=== PATIENT | female | born 1960 | race Caucasian/White ===

== ENCOUNTER 2025-07-14 16:46 | Inpatient (IN) ==
--- NOTE | 2025-07-14 17:30 | Emergency Department Note ---
Impression & Plan Sepsis, UTI (urinary tract infection), Febrile neutropenia, Nausea, vomiting and diarrhea, Hyponatremia, Hypomagnesemia, Hypokalemia, Hypocalcemia ED Provider Note NAME: SHAYNE BAJWA AGE: 65 SEX: F : 1960 ARRIVES VIA: Walk-In INFORMANT: Patient, ED PROVIDER(S): Corbin rPescott DO CHIEF COMPLAINT: intractable nausea and vomiting HPI: This is a 65-year-old female with the PMHx of metastatic colon cancer on chemotherapy and immunotherapy presenting to [facility] for further evaluation of N/V/D. Patient is accompanied by her family who provide additional history. Patient states that she may have accidently took her medications incorrectly. She was [facility] the [facility], today. Found to have a UTI, electrolyte derangements and dehydration. Sent to the ED for further evaluation. She reports severe N/V/D. She has subjective fevers and chills. No cough or congestion. Denies chest pain or palpitations. No shortness of breath. She does note urinary frequency. She is also reporting diarrhea. Patient denies recent changes in medications or OTC supplements. Patient offers no other complaints, today. ADDITIONAL HISTORY OBTAINED: Per HPI Chronic Medical/Social Conditions Affecting Care: Per HPI PAST MEDICAL HISTORY: See Below PAST SURGICAL HISTORY: See Below FAMILY HISTORY: See Below SOCIAL HISTORY: See Below HOME MEDICATIONS: See Below ALLERGIES: See Below VITALS: See Below PHYSICAL EXAMINATION: GENERAL: Sitting up in bed, alert, well appearing, well nourished, no distress, non-toxic EYE EXAM: normal conjunctiva. PERRL and EOM's grossly intact. OROPHARYNX: no exudate, no erythema, lips, buccal mucosa, and tongue normal and mucous membranes are dry NECK: supple, no nuchal rigidity, no adenopathy, non-tender LUNGS: Clear to auscultation. Normal chest wall mechanics HEART: no murmurs, tachycardic rate, regular rhythm ABDOMEN: abdomen soft, generalized TTP, no masses, no rebound or guarding. BACK: Back is symmetrical on inspection and there is no deformity, no midline tenderness, no CVA tenderness. SKIN: no rashes and no bruising UPPER EXTREMITIES: upper extremities are grossly normal. LOWER EXTREMITIES: No pitting edema. NEURO EXAM: Normal sensorium, GCS 15, normal speech, no gross weakness of arms, no gross weakness of legs. MEDICAL DECISION MAKING: Differential diagnoses includes but not limited to appendicitis, bowel obstruction, diverticulitis, malignancy, nephrolithiasis, gastroenteritis, ACS, PNA, pancreatitis, hepatobiliary disease, UTI, electrolyte derangements, dehydration, medication side effect In summary, this is a 65 year old female who presented with N/V/D. Differential as above. Nursing notes and pertinent past medical records reviewed. Vital signs reviewed and the patient is tachycardic but otherwise afebrile and HDS. History and presentation revealed patient was at the cancer center today for severe nausea and vomiting as well as abdominal pain. Found to have multiple electrolyte derangements and sent here for further care. She does have a complicated UTI. Patient states this has been ongoing. She is on oral chemo therapy as well as immunotherapy. Could be a side effect but do believe the patient is likely septic from a complicated UTI. She is peritonitic on exam, plan for CT abdomen/pelvis. Will complete sepsis evaluation with further lab work and blood cultures. Patient did receive IV fluids as well as potassium replenishment at the [facility]. Plan to recheck BMP prior to further replenishment. Will provide IV fluid resuscitation as well as broad-spectrum antibiotics with IV cefepime. BioFire ordered. Diagnostics interpreted by me include EKG and cardiac monitoring as listed below: -Cardiac Monitoring: An order was placed for continuous cardiac monitoring. The monitor shows a rate of 70-120s with regular rhythm. -ECG: Sinus tachycardia at a rate of [address] segment changes to suggest STEMI. Intervals are otherwise within normal limits. Patient completed laboratory studies and imaging. Results independently interpreted by me are ongoing dehydration, hypokalemia, hypomagnesemia, and hypocalcemia. Neutropenia noted. UTI on UA from [facility]. RVP negative but pending stool studies. The patient was managed with IVFR and broad spectrum abx. She has given pain control medications and GI cocktail with improvement. Her electrolytes were replenished in the ED. CXR independently interpreted by me reveals no evidence of focal consolidation to suggest pna. No large pneumothorax or pleural effusion. CTAP shows evidence of enteritis/colitis per my interpretation. Ultimately, the decision was made to admit the patient for sepsis c/b febrile neutropenia, dehydration, electrolyte derangements. I discussed the case with the hospitalist service via telephone/TigerText and they are agreeable to admit the patient to their services by Dr. Tafoya. Based on the above, including the patient's age, coexisting illnesses, labs, imaging, and exam findings the decision to treat as an inpatient. I discussed the patient with the hospitalist team who recommended admission to their services. They received the medications, treatments, interventions indicated above and their condition remained stable. I discussed my findings with the patient and their family and they understand and agree with the treatment plan. All patient / family questions were answered to their satisfaction. Consults/Care Managements Discussions: Per MDM ER treatment provided: See above Procedures:none Critical Care: None The chart was completed utilizing [employer] Speech voice recognition software. Grammatical errors, random word insertions, pronoun errors, and incomplete sentences are an occasional consequence of this system due to software limitations, ambient noise, and hardware issues. Any formal questions or concerns about the content, text, or information contained within the body of this dictation should be directly addressed to the physician for clarification. Past Med/Surg History Problem List (Updated 07/17/25 @ 12:22 by Corbin Prescott DO) Febrile neutropenia (Acute) Sepsis (Acute) C. difficile colitis Neutropenic fever Elevated troponin Hypocalcemia (Acute) Hypokalemia (Acute) Hypomagnesemia (Acute) Hyponatremia (Acute) Nausea, vomiting and diarrhea (Acute) Neutropenia UTI (urinary tract infection) (Acute) Social History Smoking Status: Current every day smoker Tobacco Type: Cigarettes Second Hand Exposure: No; Do You Dip or Chew Tobacco: No; Tobacco Cessation Education Requested by Patient: No Hx Alcohol Use: No Hx Substance Use: No Communication Ability: Effective Beliefs That Will Affect Care: None Current Living Situation: Spouse Other Information That Helps Us Care for You: No Feels Safe at Home: Yes Safety Concerns: Feels Safe At This Time Assistive Devices: Cane Assistive Devices Comment: shower chair Allergies Allergies Allergy/AdvReac Type Severity Reaction Status Date / Time NSAIDS (Non-Steroidal AdvReac Severe "RIPS UP Verified 07/14/25 19:32 Anti-Inflamma MY STOMACH AND GUTS" prednisone AdvReac Intermediate PER PT Verified 07/14/25 19:32 "EFFECTING THE RETINAS IN MY EYES, PER MD" Home Meds Home Medications Medication Instructions Recorded Confirmed loperamide 2 mg capsule 2 mg PO QID PRN LOOSE STOOLS 07/14/25 07/14/25 ondansetron 8 mg disintegrating 8 mg translingual Q8H PRN 07/14/25 07/14/25 tablet NAUSEA/VOMITING oxycodone 5 mg tablet 5 mg PO .Q4-6HR PRN Pain 07/14/25 07/14/25 prochlorperazine maleate 10 mg 10 mg PO Q6H PRN NAUSEA/VOMITING 07/14/25 07/14/25 tablet trifluridine 20 mg-tipiracil 8.19 3 tab PO BID 07/14/25 07/14/25 mg tablet (Lonsurf) Results & Data (ED) Vital Signs Vital Signs - 24 hr 07/14/25 16:53 07/14/25 17:34 Temperature 37.2 C Temperature Source Temporal Artery Scan Pulse Rate 123 H 113 H Respiratory Rate 22 Respiratory Effort / Characteristics Non-Labored Respiratory Depth Normal Respiratory Pattern Regular Blood Pressure 131/78 Blood Pressure Mean 95 Pulse Oximetry 98 Oxygen Delivery Method Room Air Sepsis Recent Fever Within 48 Hours No Sepsis New/Unexplained Change in Mental Status No Sepsis Action Taken by Nursing No Action Required Laboratory Data 07/17/25 06:24 07/17/25 06:24 Lab Results 07/14/25 07/14/25 Range/Units 18:01 18:05 POC Hgb 10.2 L (12.0-16.0) g/dl POC Hct 30 L (37-47) % POC Sodium 130 L (135-144) mmol/L Sodium 130 L (136-145) mmol/L POC Potassium 2.9 L (3.3-5.0) mmol/L Potassium 2.9 L (3.5-5.1) mmol/L POC Chloride 97 L (101-112) mmol/L Chloride 97 L (98-107) mmol/L Carbon Dioxide 23 (21-32) mmol/L POC Total CO2 21 L (24-31) mmol/L Anion Gap 10 (3-11) POC Anion Gap 16.0 (16-25) mmol/L POC BUN 12 (7-18) mg/dl BUN 14 (6-23) mg/dl Creatinine 0.48 L (0.6-1.2) mg/dl POC Creatinine 0.5 L (0.6-1.3) mg/dl Est Cr Clr Drug Dosing 90.3 ml/min eGFR 103.75 BUN/Creatinine Ratio 29.2 H (10-20) Glucose 128 H (70-99(Fasting)) mg/dl POC Glucose (other) 131 H (70-99) mg/dl Lactate 1.1 (0.4-2.0) mmol/L Calcium 8.2 L (8.6-10.3) mg/dl POC Ioniz Calcium Fabio 1.04 L (1.12-1.32) mmol/l Magnesium 1.6 L (1.7-2.4) mg/dl Troponin I High Sens 16.7 H (0-14) pg/ml Procalcitonin 0.88 H (0-0.5) ng/ml Administered Medications Acetaminophen (Acetaminophen 325 Mg Tab) 650 mg PO Q4H PRN PRN Reason: Pain or Fever Stop: 08/13/25 21:51 Last Admin: 07/17/25 03:03 Dose: 650 mg Documented By: Admin: 07/16/25 02:26 Dose: 650 mg Documented By: Admin: 07/15/25 19:46 Dose: 650 mg Documented By: Admin: 07/15/25 10:10 Dose: 650 mg Documented By: cdc Admin: 07/15/25 05:31 Dose: 650 mg Documented By: DARRYL Fidaxomicin (Fidaxomicin 200 Mg Tab) 200 mg PO BID ESTELLE Stop: 07/25/25 08:59 Last Admin: 07/17/25 09:35 Dose: 200 mg Documented By: Admin: 07/16/25 19:59 Dose: 200 mg Documented By: Admin: 07/16/25 08:51 Dose: 200 mg Documented By: Admin: 07/15/25 19:38 Dose: 200 mg Documented By: Admin: 07/15/25 10:10 Dose: 200 mg Documented By: cdc Cefepime HCl (Maxipime 2000mg) 2,000 mg in 20 mls @ 5 mls/min IV Q8H ESTELLE; Protocol Stop: 07/20/25 02:59 Last Admin: 07/17/25 02:52 Dose: 5 mls/min Documented By: Admin: 07/16/25 19:59 Dose: 5 mls/min Documented By: Admin: 10/03/25 11:50 Dose: 5 mls/min Documented By: Admin: 07/16/25 02:26 Dose: 5 mls/min Documented By: Admin: 07/15/25 19:38 Dose: 5 mls/min Documented By: Admin: 07/15/25 12:25 Dose: 5 mls/min Documented By: cdc Admin: 07/15/25 03:14 Dose: 5 mls/min Documented By: DARRYL Sodium Chloride (Nss) 1,000 mls @ 80 mls/hr IV .[id number] ESTELLE Stop: 07/19/25 09:59 Last Infusion: 07/17/25 11:08 Dose: Infused Documented By: Admin: 07/16/25 22:38 Dose: 80 mls/hr Documented By: Infusion: 07/16/25 21:13 Dose: Infused Documented By: Admin: 07/16/25 09:00 Dose: 80 mls/hr Documented By: SOL Ondansetron HCl (Ondansetron Inj 2 Mg/Ml 2 Ml Vial) 4 mg IV Q6H PRN PRN Reason: Nausea Stop: 08/13/25 21:51 Last Admin: 07/16/25 02:26 Dose: 4 mg Documented By: Admin: 07/14/25 22:24 Dose: 4 mg Documented By: DARRYL Oxycodone HCl (Oxycodone Hcl Ir 5 Mg Tab (Immediate Release)) 5 mg PO Q4H PRN PRN Reason: Pain Stop: 07/29/25 09:20 Last Admin: 07/17/25 03:02 Dose: 5 mg Documented By: Admin: 07/16/25 19:59 Dose: 5 mg Documented By: Admin: 07/16/25 13:33 Dose: 5 mg Documented By: Admin: 07/16/25 08:52 Dose: 5 mg Documented By: Admin: 07/15/25 18:50 Dose: 5 mg Documented By: cdc Admin: 07/15/25 10:10 Dose: 5 mg Documented By: cdc Discontinued Medications Al Hydrox/Mg Hydrox/Simethicone (Aluminum/Magnesium/Simeth (Maalox Max) 30 Ml Udc) 30 ml PO NOW STA Stop: 07/14/25 18:35 Last Admin: 07/14/25 18:48 Dose: 30 ml Documented By: ASW Hydromorphone HCl (Hydromorphone Inj 1 Mg/Ml Syringe) 1 mg IV NOW STA Stop: 07/14/25 17:31 Last Admin: 07/14/25 17:41 Dose: 1 mg Documented By: ASW Hydromorphone HCl (Hydromorphone Inj 0.5 Mg/0.5 Ml Syr) 0.5 mg IV ONE ONE Stop: 07/17/25 05:06 Last Admin: 07/17/25 05:05 Dose: 0.5 mg Documented By: ZIGGY Sodium Chloride (Nss) 1,000 mls @ 999 mls/hr IV .Q1H1M ESTELLE Stop: 07/14/25 18:30 Last Infusion: 07/14/25 18:25 Dose: Infused Documented By: Admin: 07/14/25 17:41 Dose: 999 mls/hr Documented By: ARIELW Cefepime HCl (Maxipime 2000mg) 2,000 mg in 20 mls @ 5 mls/min IV NOW STA; Protocol Stop: 07/14/25 17:33 Last Admin: 07/14/25 18:48 Dose: 5 mls/min Documented By: ARIELW Potassium Chloride (K Salo / Wtr) 10 meq in 100 mls @ 100 mls/hr IV Q1H ESTELLE Stop: 07/14/25 21:29 Last Infusion: 07/14/25 22:38 Dose: Infused Documented By: Admin: 07/14/25 21:23 Dose: 100 mls/hr Documented By: Infusion: 07/14/25 21:17 Dose: Infused Documented By: Admin: 07/14/25 20:22 Dose: 100 mls/hr Documented By: Infusion: 07/14/25 19:48 Dose: Infused Documented By: Admin: 07/14/25 18:48 Dose: 100 mls/hr Documented By: ASW Famotidine (Pepcid 20mg Iv Push) 20 mg in 5 mls @ 2.5 mls/min IV NOW STA Stop: 07/14/25 18:35 Last Admin: 07/14/25 18:48 Dose: 2.5 mls/min Documented By: ASW Magnesium Sulfate/Dextrose (Magnesium Sulfate / D5w) 1 gm in 100 mls @ 100 mls/hr IV Q1H ESTELLE Stop: 07/14/25 20:51 Last Infusion: 07/14/25 22:19 Dose: Infused Documented By: Admin: 07/14/25 20:44 Dose: 100 mls/hr Documented By: Infusion: 07/14/25 20:44 Dose: Infused Documented By: Admin: 07/14/25 19:54 Dose: 100 mls/hr Documented By: ASW Calcium Gluconate () 1,000 mg in 60 mls @ 240 mls/hr IV NOW STA Stop: 07/14/25 19:06 Last Infusion: 07/14/25 19:16 Dose: Infused Documented By: Admin: 07/14/25 19:01 Dose: 240 mls/hr Documented By: ASGlenis Acetaminophen (Ofirmev) 1,000 mg in 100 mls @ 400 mls/hr IV NOW STA Stop: 07/14/25 20:36 Last Infusion: 07/14/25 21:08 Dose: Infused Documented By: Admin: 07/14/25 20:44 Dose: 400 mls/hr Documented By: ASW Lactated Ringer's (Lr) 1,000 mls @ 80 mls/hr IV .[id number] ESTELLE Stop: 07/15/25 22:59 Last Infusion: 07/16/25 00:34 Dose: Infused Documented By: Admin: 07/15/25 11:29 Dose: 80 mls/hr Documented By: [facility] Infusion: 07/15/25 11:28 Dose: Infused Documented By: [facility] Admin: 07/14/25 22:25 Dose: 80 mls/hr Documented By: DARRYL Prochlorperazine 10 mg/ (Syringe) 10 mls @ 5 mls/min IV ONE ONE Stop: 07/16/25 03:18 Last Admin: 07/16/25 03:40 Dose: 5 mls/min Documented By: ANDI Potassium Chloride (K Salo / Wtr) 10 meq in 100 mls @ 100 mls/hr IV Q1H ESTELLE Stop: 07/16/25 11:59 Last Infusion: 07/16/25 13:18 Dose: Infused Documented By: Admin: 07/16/25 11:49 Dose: 100 mls/hr Documented By: Infusion: 07/16/25 11:49 Dose: Infused Documented By: Admin: 07/16/25 10:51 Dose: 100 mls/hr Documented By: Infusion: 07/16/25 10:43 Dose: Infused Documented By: Admin: 07/16/25 09:43 Dose: 100 mls/hr Documented By: Infusion: 07/16/25 09:43 Dose: Infused Documented By: Admin: 07/16/25 08:50 Dose: 100 mls/hr Documented By: SOL Potassium Chloride (K Salo / Wtr) 10 meq in 100 mls @ 100 mls/hr IV Q1H ESTELLE Stop: 07/17/25 11:59 Last Infusion: 07/17/25 11:30 Dose: Infused Documented By: Admin: 07/17/25 10:30 Dose: 100 mls/hr Documented By: Infusion: 07/17/25 10:30 Dose: Infused Documented By: Admin: 07/17/25 09:30 Dose: 100 mls/hr Documented By: KEVIN Influenza Virus Vacc Triv Types A&B (Influenza Vacc [id number](65y+)/Pf (Iiv3) 0.5ml Syr) 0.5 ml IM .ONCE ONE Stop: 07/15/25 10:46 Last Admin: 07/15/25 18:45 Dose: Not Given Documented By: [facility] Ioversol (Optiray 320 100ml) 90 ml IV ONCE ONE Stop: 07/14/25 18:40 Last Admin: 07/14/25 18:39 Dose: 90 ml Documented By: ADY Morphine Sulfate (Morphine Sulfate 2 Mg/Ml Carp) 1 mg IV NOW STA Stop: 07/15/25 06:04 Last Admin: 07/15/25 06:14 Dose: 1 mg Documented By: DARRYL Potassium Chloride (Potassium Chloride Crtab 20 Meq Tabcr) 40 meq PO NOW STA Stop: 07/15/25 02:29 Last Admin: 07/15/25 03:13 Dose: 40 meq Documented By: DARRYL Discharge Plan Visit Data Chief Complaint: Referred by Doctor Stated Complaint: PAIN NAUSEA CANCER PATIENT DOC REFERRAL ED Provider: Corbin Prescott Discharge Problem: Sepsis, UTI (urinary tract infection), Febrile neutropenia, Nausea, vomiting and diarrhea, Hyponatremia, Hypomagnesemia, Hypokalemia, Hypocalcemia Patient Disposition: Admitted As Inpatient Condition: Serious Discharge Instructions Interventions: ED Discharge Assessment Last Done: 07/14/25 21:33
[2025-07-14] MEDS: SODIUM CHLORIDE 0.9% 1,000 ML IV SCH (17:41)
[2025-07-14] MEDS: HYDROmorphone INJ 1 MG/ML SYRINGE IV STA (17:41)
--- NOTE | 2025-07-14 18:26 | XRay Report ---
Chest radiograph, one view History: Sepsis Comparison: None Findings: Single AP view of the chest performed. No focal consolidation or pleural effusion. No pneumothorax. The cardiomediastinal silhouette is within normal limits. Normal pulmonary vascularity. No evidence for lymphadenopathy. No visualized bony or soft tissue abnormality. Impression: Normal chest radiograph Electronically signed by Etienne Fitzgerald 07-14-2025 6:26 PM
[2025-07-14] MEDS: OPTIRAY 320 100ml IV ONE (18:39)
[2025-07-14 18:40] LABS: Anion Gap 10.0 (3-11); Blood Urea Nitrogen 14.0 mg/dl (6-23); Calcium 8.2 mg/dl (8.6-10.3); Carbon Dioxide 23.0 mmol/L (21-32); Chloride 97.0 mmol/L (98-107); Creatinine Clr Calc Pharmacy 90.3 ml/min; Glucose 128.0 mg/dl (70-99(Fasting)); Magnesium 1.6 mg/dl (1.7-2.4); Potassium 2.9 mmol/L (3.5-5.1); Sodium 130.0 mmol/L (136-145)
[2025-07-14] MEDS: CEFEPIME 2000MG 2,000 MG/20 ML SYR IV STA (18:48)
[2025-07-14] MEDS: FAMOTIDINE 20MG IV PUSH 20 MG/5 ML SYR IV STA (18:48)
[2025-07-14] MEDS: ALUMINUM/MAGNESIUM/SIMETH (MAALOX MAX) 30 ML UDC PO STA (18:48)
[2025-07-14] MEDS: POTASSIUM CHLORIDE / WTR 10 MEQ/100 ML PLCT IV SCH (18:48)
[2025-07-14 18:52] LABS: Chlamydia pneumoniae PCR Not Detected (NotDetected); Coronavirus 229E PCR Not Detected (NotDetected); Coronavirus CoV-2 (COVID19)PCR Not Detected (NotDetected); Coronavirus HKU1 PCR Not Detected (NotDetected); Coronavirus NL63 PCR Not Detected (NotDetected); Coronavirus OC43PCR Not Detected (NotDetected); Human Metapneumovirus PCR Not Detected (NotDetected); Parainfluenza Virus 1 PCR Not Detected (NotDetected); Parainfluenza Virus 2 PCR Not Detected (NotDetected); Parainfluenza Virus 3 PCR Not Detected (NotDetected); Parainfluenza Virus 4 PCR Not Detected (NotDetected); Respiratory Syncytial VirusPCR Not Detected (NotDetected); Rhinovirus/Enterovirus PCR Not Detected (NotDetected)
[2025-07-14] MEDS: CALCIUM GLUCONATE 1,000 MG/60 ML BAG IV STA (19:01)
--- NOTE | 2025-07-14 19:16 | CT Scan Report ---
Clinical History: Abdominal pain Technique: Axial computed tomography images were obtained of the abdomen and pelvis after the administration of intravenous contrast. Comparison is made to the prior CT dated 04/08/2025. Findings: The liver is overall of normal size, attenuation, and contour with no sign of cirrhosis or significant fatty infiltration. There is an unchanged 4 mm cyst in the left hepatic lobe. No liver mass lesion is seen. The portal vein is patent. The gallbladder appears unremarkable. No bile duct dilatation is noted. The spleen is of normal size. No focal splenic lesion is evident. The pancreas appears normal with no sign of acute or chronic pancreatitis and no mass lesion noted. The pancreatic duct is of normal caliber. The adrenal glands appear unremarkable. No definite renal or proximal ureteral calculi are seen on this contrast-enhanced study. There is no hydronephrosis or perinephric stranding. No renal mass lesion is identified. There is a small 8 x 3 mm cyst in the mid left kidney. The aorta is of normal caliber. No abdominal adenopathy is seen. There is a small epigastric hernia containing fat The stomach appears normal. There is no sign of small bowel obstruction. There is new wall thickening of the distal jejunum and ileum with adjacent mild mesenteric edema. No free intraperitoneal fluid or air is identified. Anastomotic sutures are again seen of the sigmoid colon. There is a 4.1 x 3.2 cm low attenuation lesion abutting the mid sigmoid colon, previously 3.3 x 2.7 cm. Posterosuperior to this, there is a 3.7 x 2.9 cm low attenuation lesion, previously 3.5 x 2.5 centimeters. Superior to this, there is a 2.6 x 2.3 cm lesion that previously measured 2 x 1.9 cm. No distal ureteral or bladder calculi are seen. No bladder mass lesion is evident. The iliac arteries are of normal caliber. The uterus has been removed The lungs bases appear clear. Lumbar degenerative disc disease is seen. No fracture is identified. No focal osseous lesion is seen Impression: 1. New small bowel wall thickening, consistent with infectious enteritis or inflammatory bowel disease 2. Interval increase in size of 3 low-attenuation lesions in the left pelvis, concerning for worsening metastatic disease 3. Small epigastric hernia containing only fat 4. Small left renal cyst ACT 112: Positive. There are findings on this exam that require communication between the performing entity and the patient following Patient Test Result Information Act ([place] ACT 112) guidelines. Electronically signed by Romel Alonso 07-14-2025 7:16 PM
[2025-07-14] MEDS: MAGNESIUM SULFATE / D5W 1 GM/100 ML BAG IV SCH (19:54)
--- NOTE | 2025-07-14 19:55 | History & Physical Report ---
Date of Service July 14, 2025 Assessment & Plan (1) UTI (urinary tract infection): (2) Neutropenia: (3) Nausea, vomiting and diarrhea: (4) Hyponatremia: (5) Hypomagnesemia: (6) Hypokalemia: (7) Hypocalcemia: (8) Elevated troponin: Plan 65-year-old female PMHx stage IV colon cancer on immunotherapy presenting from [facility] for N/V/D as well as electrolyte abnormalities as identified on outpatient labs. Her evaluation does reveal that she is leukopenic and neutropenic at 0.32 and <0.5 respectively. Electrolyte abnormalities include decreased sodium, potassium, calcium and magnesium. Slightly elevated bilirubin with decreased AST, elevated alkaline phosphatase. Procalcitonin minimally elevated with normal lactate and presence of UTI. CTAP revealing findings consistent with infectious enteritis or IBS. Admission for neutropenia in setting of UTI, enteritis, and electrolyte abnormalities. #UTI/? Sepsis/Neutropenia Symptoms of N/V/D, weakness ~ 1 week [employer]; No history of Pseudomonas, but with leukopenia/neutropenia. Arrival to ED revealed HR 120s and in setting of leukopenia. Lactate WNL. UTI suspected main source vs enteritis. Admit for management. - CBC WBC 0.32, neutrophils < 0.5; CMP Cr 0.48, BUN/Cr 29.2; lactate 1.1, procal 0.88 - CBC am - UA suggestive of infection; pending cx - Blood cx pending - BioFire negative - CXR WNL - CTAP infectious enteritis or IBS, small epigastric hernia containing fat, smal l L renal cyst - Neutropenic precautions - IVF LR @ 80 mL/hr - Zofran prn N/V - Cefepime IV - continue #N/V/D Ongoing, likely 2/2 incorrect schedule of administration of Lonsurf. On loperamide at home for loose stool. - Hold loperamide - CTAP sections enteritis or IBS, increased size 3 low-attenuation lesions in the pelvis concerning for worsening metastatic disease, small epigastric hernia containing only fat, small L renal cyst - Stool studies pending - Zofran IV prn, prochlorperazine po - Acetaminophen prn fever/pain - Maalox prn - IVF as ordered - Ice to abdomen as pt requests #Hypokalemia/Hypomagnesemia/Hyponatremia/Hypocalcemia In setting of vomiting and diarrhea over the past week, worsening 3 days [employer]. Has been unable to tolerate anything by mouth. - Na 130, glucose 128; Receive total 2L (between [facility] + ED) - maintenance LR @ 80 mL/hr - K 2.9; KCl 30 mEq IV given - Mg 1.6; mag sulfate 2g IV given - Ca 8.2; Calcium gluconate 1g IV given - Trend labs am #Elevated troponin No chest pain - Troponin 16.7, pending repeat - EKG sinus tachycardia @ 117 bpm, no ischemic changes - Likely 2/2 demand #Colon CA Follows with [facility], was taking Lonsurf but admits to administering incorrectly and taking incorrect doses. - Hold Lonsurf - CBC WBC 0.32, neutrophils < 0.5 - Consult heme/onc as appropriate Dispo: Admit, med/tele VTE Prophylaxis: SCDs This document was dictated utilizing [employer]. Please excuse any grammatical errors that may be secondary to use of this software. Admission and Anticipated Discharge Date Admission Date: 07/14/2025 History of Present Illness Chief Complaint: N/V/D, electrolyte abnormalities Primary Care Provider: Surinder Babcock MD 65-year-old female PMHx stage IV colon cancer on immunotherapy presenting from [facility] for N/V/D as well as electrolyte abnormalities as identified on outpatient labs. Patient states that approximately 1 week [employer] she started to have nausea, vomiting, and diarrhea. 3 days [employer] this worsened and she has been unable to keep any oral intake down since. She does admit to being on Lonsurf and was not taking this medication correctly, stating that she misunderstood the instructions and believes that this is the reason that she has felt sick. She states she has loose stool approximately 2+ times a day, excessive gas, and vomits multiple times of the day, mainly clear liquid. She does continue to have dry heaves but no nausea. States that her abdomen is not painful but she feels rumbling so she is to have a bowel movement. She denies fevers or chills. She has had a generalized headache across her forehead but no vision changes or neuro-deficits. No dysuria or foul odor to urine, but states that she is having lower abdomen pressure and feeling like she has to urinate all the time. She was seen by the cancer care center the day of arrival who encouraged her to come to ED after the labs showed that she was leukopenic and neutropenic, with presence of UTI. Patient denies chest pain, SOB, palpitations, constipation, numbness/tingling, fever/chills, URI symptoms, additional LUTS, syncope, or falls. ED evaluation reveals CBC with leukopenia 0.32, H&H 13.6/39.0, platelets 106, neutrophils <0.5; CMP sodium 130, potassium 2.9, chloride 97, creatinine 0.48, ratio 29.2, glucose 128; calcium 8.2; magnesium 1.6; lactate 1.1; bilirubin 1.6, AST 9, alkaline phosphatase 114; troponin 16.7; procalcitonin 0.88; UA positive for infection; BioFire negative; CXR WNL; CTAP new small bowel wall thickening consistent with infectious enteritis or IBS, interval increase in size 3 low-attenuation lesion of L pelvis concerning for worsening metastatic disease, small gastric hernia containing only fat, small L renal cyst; EKG sinus tachycardia @ 117 bpm.; Provided with 1L NSS, KCl 10 mEq IV, mag sulfate 2 g IV, hydromorphone 1 mg IV, famotidine 20 mg IV, cefepime 2 g IV, calcium gluconate 1 mg IV, and Maalox 30 mL p.o. in ED. Please see Dr. Tafoya's attestation for adjustments/additions to treatment plan. Allergies Allergy/AdvReac Type Severity Reaction Status Date / Time NSAIDS (Non-Steroidal AdvReac Severe "RIPS UP Verified 07/14/25 19:32 Anti-Inflamma MY STOMACH AND GUTS" prednisone AdvReac Intermediate PER PT Verified 07/14/25 19:32 "EFFECTING THE RETINAS IN MY EYES, PER MD" Home Medications Medication Instructions Recorded Confirmed Type loperamide 2 mg capsule 2 mg PO QID PRN LOOSE STOOLS 07/14/25 07/14/25 History ondansetron 8 mg disintegrating 8 mg translingual Q8H PRN 07/14/25 07/14/25 History tablet NAUSEA/VOMITING oxycodone 5 mg tablet 5 mg PO .Q4-6HR PRN Pain 07/14/25 07/14/25 History prochlorperazine maleate 10 mg 10 mg PO Q6H PRN NAUSEA/VOMITING 07/14/25 07/14/25 History tablet trifluridine 20 mg-tipiracil 8.19 3 tab PO BID 07/14/25 07/14/25 History mg tablet (Lonsurf) Past Med/Surg History Problem List (Updated 07/14/25 @ 22:04 by Hue Hartman PA-C) Elevated troponin Hypocalcemia Hypokalemia Hypomagnesemia Hyponatremia Nausea, vomiting and diarrhea Neutropenia UTI (urinary tract infection) Social History Smoking Status: Current every day smoker Tobacco Type: Cigarettes Second Hand Exposure: No; Do You Dip or Chew Tobacco: No; Tobacco Cessation Education Requested by Patient: No Hx Alcohol Use: No Hx Substance Use: No Communication Ability: Effective Beliefs That Will Affect Care: None Current Living Situation: Spouse Other Information That Helps Us Care for You: No Feels Safe at Home: Yes Safety Concerns: Feels Safe At This Time Assistive Devices: Cane, Glasses and Other Assistive Devices Comment: shower chair Review of Systems Review of Systems: All systems reviewed & are unremarkable except as noted in Subjective Physical Exam Physical Exam: General: No acute distress Skin: Warm and dry Head: Normocephalic, atraumatic Eyes: PERRL, conjunctivae clear, sclera non-icteric ENT: External ear and ear canal without swelling; nose atraumatic; good dentition, tongue normal appearance, pharynx normal Neck: Supple, no LAD Cardio: RRR, no M/G/R, S1 and S2 normal Resp: No respiratory distress, Lungs CTA in all lobes bilaterally, no wheezes, rales, or rhonchi Abdomen: Soft, symmetric, mild tenderness to palpation lower abdomen; No masses or hepatosplenomegaly; Bowel sounds normoactive MSK: No deformities; pulses palpable and equal; no edema. Neuro: Awake, alert; Sensation intact bilaterally; CN grossly intact Psych: Appropriate mood and affect; good judgement and insight. Results & Data Results & Data Vital Signs (Past 12 Hours) Vital Signs Temp Pulse Pulse Resp BP BP Pulse Ox 07/14/25 18:49 81 22 132/65 96 07/14/25 18:14 85 19 149/87 H 97 07/14/25 17:34 113 H 07/14/25 16:53 37.2 C 123 H 22 131/78 98 O2 Del Method 07/14/25 18:49 Room Air 07/14/25 18:14 Room Air 07/14/25 17:34 07/14/25 16:53 Room Air Laboratory Results 07/14/25 18:24 Aerobic Blood Culture - Pending Blood Anaerobic Blood Culture - Pending 07/14/25 18:01 Aerobic Blood Culture - Pending Blood Anaerobic Blood Culture - Pending 07/14/25 07/14/25 07/14/25 Unknown 18:05 18:01 POC Hgb 10.2 L POC Hct 30 L POC Sodium 130 L Sodium 130 L POC Potassium 2.9 L Potassium 2.9 L POC Chloride 97 L Chloride 97 L Carbon Dioxide 23 POC Total CO2 21 L Anion Gap 10 POC Anion Gap 16.0 POC BUN 12 BUN 14 Creatinine 0.48 L POC Creatinine 0.5 L Est Cr Clr Drug Dosing 90.3 eGFR 103.75 BUN/Creatinine Ratio 29.2 H Glucose 128 H POC Glucose (other) 131 H Lactate 1.1 Calcium 8.2 L POC Ioniz Calcium Fabio 1.04 L Magnesium 1.6 L Troponin I High Sens 16.7 H Procalcitonin 0.88 H Adenovirus (PCR) Not Detected B. pertussis DNA (PCR) Not Detected B.parapertussis DNA PCR Not Detected C. pneumoniae DNA (PCR) Not Detected Coronavirus OC43 (PCR) Not Detected Coronavirus HKU1 (PCR) Not Detected Coronavirus 229E (PCR) Not Detected SARS-CoV-2 (PCR) Not Detected Coronavirus NL63 (PCR) Not Detected Human Metapneumovir PCR Not Detected Influenza Type A (PCR) Not Detected Influenza Type B (PCR) Not Detected M. pneumoniae (PCR) Not Detected Parainfluenza 1 (PCR) Not Detected Parainfluenza 2 (PCR) Not Detected Parainfluenza 3 (PCR) Not Detected Parainfluenza 4 (PCR) Not Detected RSV (PCR) Not Detected Entero/Rhino (PCR) Not Detected Diagnostic Findings Abdomen/Pelvis CT 07/14/25 17:30 Clinical History: Abdominal pain Technique: Axial computed tomography images were obtained of the abdomen and pelvis after the administration of intravenous contrast. Comparison is made to the prior CT dated 04/08/2025. Findings: The liver is overall of normal size, attenuation, and contour with no sign of cirrhosis or significant fatty infiltration. There is an unchanged 4 mm cyst in the left hepatic lobe. No liver mass lesion is seen. The portal vein is patent. The gallbladder appears unremarkable. No bile duct dilatation is noted. The spleen is of normal size. No focal splenic lesion is evident. The pancreas appears normal with no sign of acute or chronic pancreatitis and no mass lesion noted. The pancreatic duct is of normal caliber. The adrenal glands appear unremarkable. No definite renal or proximal ureteral calculi are seen on this contrast-enhanced study. There is no hydronephrosis or perinephric stranding. No renal mass lesion is identified. There is a small 8 x 3 mm cyst in the mid left kidney. The aorta is of normal caliber. No abdominal adenopathy is seen. There is a small epigastric hernia containing fat The stomach appears normal. There is no sign of small bowel obstruction. There is new wall thickening of the distal jejunum and ileum with adjacent mild mesenteric edema. No free intraperitoneal fluid or air is identified. Anastomotic sutures are again seen of the sigmoid colon. There is a 4.1 x 3.2 cm low attenuation lesion abutting the mid sigmoid colon, previously 3.3 x 2.7 cm. Posterosuperior to this, there is a 3.7 x 2.9 cm low attenuation lesion, previously 3.5 x 2.5 centimeters. Superior to this, there is a 2.6 x 2.3 cm lesion that previously measured 2 x 1.9 cm. No distal ureteral or bladder calculi are seen. No bladder mass lesion is evident. The iliac arteries are of normal caliber. The uterus has been removed The lungs bases appear clear. Lumbar degenerative disc disease is seen. No fracture is identified. No focal osseous lesion is seen Impression: 1. New small bowel wall thickening, consistent with infectious enteritis or inflammatory bowel disease 2. Interval increase in size of 3 low-attenuation lesions in the left pelvis, concerning for worsening metastatic disease 3. Small epigastric hernia containing only fat 4. Small left renal cyst ACT 112: Positive. There are findings on this exam that require communication between the performing entity and the patient following Patient Test Result Information Act ([place] ACT 112) guidelines. Electronically signed by Romle Alonso 07-14-2025 7:16 PM Chest X-Ray 07/14/25 17:30 Chest radiograph, one view History: Sepsis Comparison: None Findings: Single AP view of the chest performed. No focal consolidation or pleural effusion. No pneumothorax. The cardiomediastinal silhouette is within normal limits. Normal pulmonary vascularity. No evidence for lymphadenopathy. No visualized bony or soft tissue abnormality. Impression: Normal chest radiograph Electronically signed by Etienne Fitzgerald 07-14-2025 6:26 PM Medications Administered 1L NSS KCl 10 mEq IV Mag sulfate 2 g IV Hydromorphone 1 mg IV Famotidine 20 mg IV Cefepime 2 g IV Calcium gluconate 1 mg IV Maalox 30 mL p.o. ECG Additional Comments: Sinus tachycardia 117 bpm, [place] 138, QRS 76, QT/QTc 332/463, PRT -14/-11/-20 Code Status & VTE Plan Code Status Full Supervising Physician Co-Signing Physician Notes Patient seen examined, chart reviewed, case discussed with RASHI Hartman and agree with assessment and plan as above. In brief, patient is a 65-year-old female with stage IV colon cancer on immunotherapy presenting with nausea, vomiting and diarrhea. Workup thus far revealing neutropenia, UTI, enteritis and electrolyte abnormalities On exam patient is afebrile, hemodynamically stable, no acute distress + S1, S2, regular, no murmur/rub/gallops Lungs CTA Abdomen soft, non-nondistended, mild tenderness in the lower abdomen without rebound/guarding/peritonitis assessment/plan IV fluids Electrolyte repletion Maintain neutropenic precautions Continue cefepime PG Care Time/CCT Total # of Minutes Spent Total Time Spent with Patient: Total time spent is greater than 50% in coordination of care (as documented) at patient's floor/unit and/or counseling patient: Coding Level of Care Code 83033 INT INP/OBS CARE 3/75MIN Diagnoses UTI (urinary tract infection) N39.0 Neutropenia D70.9 Nausea, vomiting and diarrhea R11.2; R19.7 Hyponatremia E87.1 Hypomagnesemia E83.42 Hypokalemia E87.6 Hypocalcemia E83.51 Elevated troponin R79.89
[2025-07-14] MEDS: ACETAMINOPHEN 1,000 MG/100 ML VIAL IV STA (20:44)
[2025-07-14] MEDS ORDERED: PROCHLORPERAZINE MALEATE 10 MG TAB PO PRN (21:52)
[2025-07-14] MEDS ORDERED: ALUMINUM/MAGNESIUM SUSP 30 ML UDC PO PRN (21:52)
[2025-07-14] MEDS ORDERED: MELATONIN 3 MG TAB PO PRN (21:52)
[2025-07-14] MEDS ORDERED: ONDANSETRON 4 MG OD TAB SL PRN (21:54)
[2025-07-14 22:16] LABS: Adenovirus F 40/41 PCR Not Detected (NotDetected); Campylobacter PCR Not Detected (NotDetected); Enteroaggregative E.coli(EAEC) Not Detected (NotDetected); Shiga-like Toxin E.coli (STEC) Not Detected (NotDetected); Vibrio species PCR Not Detected (NotDetected)
[2025-07-14] MEDS: ONDANSETRON INJ 2 MG/ML 2 ML VIAL IV PRN (22:24)
[2025-07-14] MEDS: LACTATED RINGER'S 1,000 ML IV SCH (22:25)
[2025-07-14 22:43] LABS: Cdiff Toxin B Gene (2yr or >) Positive Cdiff Gene (Neg)
[2025-07-14 23:39] LABS: Cdiff Toxin A+B Negative Cdiff Toxin (Negative)
[2025-07-15] MEDS: POTASSIUM CHLORIDE CRTAB 20 MEQ TABCR PO STA (03:13)
[2025-07-15] MEDS: CEFEPIME 2000MG 2,000 MG/20 ML SYR IV SCH (03:14)
[2025-07-15] MEDS: ACETAMINOPHEN 325 MG TAB PO PRN (05:31)
[2025-07-15] MEDS: MoRPHine SULFATE 2 MG/ML CARP IV STA (06:14)
[2025-07-15 08:13] LABS: Anion Gap 9.0 (3-11); Blood Urea Nitrogen 9.0 mg/dl (6-23); Calcium 8.2 mg/dl (8.6-10.3); Carbon Dioxide 23.0 mmol/L (21-32); Chloride 97.0 mmol/L (98-107); Creatinine Clr Calc Pharmacy 114.9 ml/min; Glucose 126.0 mg/dl (70-99(Fasting)); Magnesium 1.9 mg/dl (1.7-2.4); Potassium 2.9 mmol/L (3.5-5.1); Sodium 129.0 mmol/L (136-145)
[2025-07-15 08:16] LABS: Hematocrit (blood only) 27.7 % (37.0-47.0); Hemoglobin 10.0 g/dl (12.0-16.0); Mean Corpuscular Hemoglobin 29.3 pg (25.0-34.0); Mean Corpuscular Volume 81.2 fL (80.0-100.0); Platelet Count 53 K/uL (130-400); RDW Standard Deviation 38.4 fL (36.4-46.3); Red Blood Count 3.41 M/uL (4.20-5.40); White Blood Count 0.17 K/ul (4.8-10.8)
--- NOTE | 2025-07-15 08:41 | Electrocardiogram Report ---
Test Reason : Blood Pressure : */* mmHG Vent. Rate : 117 BPM Atrial Rate : 117 BPM P-R Int : 138 ms QRS Dur : 76 ms QT Int : 332 ms P-R-T Axes : -14 -11 -20 degrees QTcB Int : 463 ms Sinus tachycardia Nonspecific ST abnormality Abnormal ECG When compared with ECG of 26-Jan-2025 12:43, Nonspecific T wave abnormality now evident in Inferior leads Nonspecific T wave abnormality now evident in Anterior leads Confirmed by Etienne Pollard ([id number]) on 07/15/2025 8:41:32 AM Referred By: Mahesh Rowe Confirmed By: Etienne Pollard
--- NOTE | 2025-07-15 09:28 | Hospitalist Progress Note ---
Date of Service July 15, 2025 Assessment & Plan (1) UTI (urinary tract infection): Plan: -on cefepime (2) Neutropenia: Plan: -colon CA -on lonsurf -WBC 0.17 today -heme-onc consulted (3) Nausea, vomiting and diarrhea: Plan: -c.diff B + with symptoms -started Fidaxomicin -ID consulted (4) Hyponatremia: Plan: -on LR@80cc/hr -f/u BMP (5) Hypomagnesemia: Plan: -repleated (6) Hypokalemia: Plan: -repleated (7) Hypocalcemia: Plan: -calcium gluconate give (8) Elevated troponin: Plan: EKG sinus tachycardia @ 117 bpm, no ischemic changes - Likely 2/2 demand Plan 65-year-old female PMHx stage IV colon cancer on immunotherapy presenting from [facility] for N/V/D as well as electrolyte abnormalities as identified on outpatient labs. Her evaluation does reveal that she is leukopenic and neutropenic at 0.32 and <0.5 respectively. Electrolyte abnormalities include decreased sodium, potassium, calcium and magnesium. Slightly elevated bilirubin with decreased AST, elevated alkaline phosphatase. Procalcitonin minimally elevated with normal lactate and presence of UTI. CTAP revealing findings consistent with infectious enteritis or IBS. Admission for neutropenia in setting of UTI, enteritis, and electrolyte abnormalities. Admission and Anticipated Discharge Date Admission Date: July 14, 2025 Subjective No events overnight. Review of Systems Review of Systems: CONST: Negative for fever, body aches and chills. HENT: Negative for neck pain/stiffness, headache, congestion, sore throat, swelling. EYES: Negative for discharge/pain or vision changes. RESP: Negative for cough/hemoptysis and shortness of breath. CV: Negative chest pain, difficulty breathing, palpitations. ABD: Negative pain, nausea, vomiting. : Negative increase frequency, dysuria, blood in urine or stool. MUSC: Negative for muscle aches, edema. SKIN: Negative rash, lesions/sores. NEURO: Negative headache, dizziness, weakness. Physical Exam Physical Exam: GENERAL APPEARANCE NAD, activity normal for age, well developed/ well nourished, no cyanosis, pallor, or diaphoresis. EYES lids/conjunctiva normal. EARS/NOSE/THROAT Mucous membranes moist, nares normal, lips/teeth normal uvula midline without oral pharyngeal erythema, exudate or swelling TMs normal bilaterally. No lymphangitis/lymphedema. HEAD/NECK normocephalic atraumatic, no facial trauma, neck is supple. RESPIRATORY respiratory effort normal, speaks in full sentences, no tripod position, no accessory muscle use. Lungs clear to auscultation without rhonchi, wheezes, rales CARDIAC Regular rate and rhythm, no edema. ABDOMINAL Soft, ND/NT. No evidence of fluid wave. No pulsatile masses on exam, rebound tenderness, York sign or pain over Mcburney's point. MUSCLES/EXTREMITIES No abnormal range of motion, no swelling. SKIN Warm, pink and dry. No rashes, dermatoses, petechiae or lesions. NEUROLOGICAL Speech is clear and appropriate. Normal level of consciousness. Gait and coordination are normal. 5/5 strength in all extremities. PSYCH Normal mood and affect. Judgement/competence is appropriate Results & Data Results & Data Vital Signs (Past 12 Hours) Vital Signs Temp Pulse Pulse Resp BP Pulse Ox O2 Del Method 07/15/25 07:30 37.6 C H 76 18 117/58 L 96 Room Air 07/15/25 03:01 38.2 C H 108 H 16 124/73 98 Room Air 07/14/25 22:00 75 07/14/25 22:00 37.3 C 75 20 123/73 95 Room Air 07/14/25 21:23 79 19 127/71 97 Room Air PG Care Time/CCT Total # of Minutes Spent Total Time Spent with Patient: Total time spent is greater than 50% in coordination of care (as documented) at patient's floor/unit and/or counseling patient: Coding Level of Care Code 36896 SUB INP/OBS CARE 2/35MIN Diagnoses UTI (urinary tract infection) N39.0 Neutropenia D70.9 Nausea, vomiting and diarrhea R11.2; R19.7 Hyponatremia E87.1 Hypomagnesemia E83.42 Hypokalemia E87.6 Hypocalcemia E83.51 Elevated troponin R79.89
--- NOTE | 2025-07-15 10:07 | Infectious Disease Consult ---
Date of Consultation July 15, 2025 Assessment & Plan (1) Neutropenic fever: (2) C. difficile colitis: Plan Problems: #Neutropenic fever #Diarrhea #N/V #Colon cancer on Lonsurf Micro: 07/14 BCx x2: pending 07/14 UCx: pending Abx: Cefepime 07/14 - present Fidaxomicin 07/15 - present 65 yo F with stage IV colon cancer on immunotherapy who presented from [facility] on 07/14/25 for N/V/D, outpatient lab abnormalities, found to have neutropenic fever and likely C diff. 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 Reports >5 episodes of watery diarrhea a day. Denies fevers or chills. Denies dysuria or urinating more frequently than usual. She reports that in the last few weeks, her oncologist prescribed her an antibiotic for UTI (she does not recall the name of the antibiotic). On presentation, pt was afebrile, HR 123, BP 131/78. Became febrile to 38.2 overnight. Labs showed WBC 0.32, ANC < 500, Hb 13.6, plt 106, Cr 0.75. UA with 6-[address] A/P with IV contrast showed new small bowel wall thickening, consistent with infectious enteritis or inflammatory bowel disease. Pt was started on cefepime. Stool pathogen panel came back C diff toxin gene positive, toxin negative. BCx and UCx pending. Pt denies recent travel or sick contacts. Endorses some rhinorrhea, shortness of breath. Also reports feeling dizzy and weak. Denies a history of prior C diff. Discussion: C diff toxin gene positive, toxin negative--could indicate colonization, but in the setting of recent antibiotic exposure and frequent diarrhea, will treat as C diff. Not ideal to continue systemic antibiotics while treating for C diff, but will continue given neutropenic fever. Recommendations: - Continue fidaxomicin 200 mg PO BID - Continue cefepime given neutropenic fever - Follow-up blood and urine cultures Will continue to follow Consultation Information Consultation was provided via telemedicine using two-way real-time interactive telecommunication between the patient and the telemedicine provider. For the duration of the visit, the provider was performing the assessment from a different facility than the patient. This includesuse of bluetooth stethoscope forauscultationperformed by the telepresenter that the telemedicine provider can hear if described in the physical exam. Spinneret Cleaner contact information: Please call [facility] . (Phone Number For Physician Use Only) After establishing a telemedicine visit, patient was: Patient was verified with two unique identifiers, Patient/authorized rep acknowledged consent and understanding and Gave permission to continue telehealth session Time Spent with Patient: Initial => 55 min History of Present Illness Reason for Consultation: C diff, neutropenia Attending Physician: Hadley Zhao MD History of Present Illness 65 yo F with stage IV colon cancer on immunotherapy who presented from [facility] on 07/14/25 for N/V/D, outpatient lab abnormalities. 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 Reports >5 episodes of watery diarrhea a day. Denies fevers or chills. Denies dysuria or urinating more frequently than usual. She reports that in the last few weeks, her oncologist prescribed her an antibiotic for UTI (she does not recall the name of the antibiotic). On presentation, pt was afebrile, HR 123, BP 131/78. Became febrile to 38.2 overnight. Labs showed WBC 0.32, ANC < 500, Hb 13.6, plt 106, Cr 0.75. UA with 6-[address] A/P with IV contrast showed new small bowel wall thickening, consistent with infectious enteritis or inflammatory bowel disease. Pt was started on cefepime. Stool pathogen panel came back C diff toxin gene positive, toxin negative. BCx and UCx pending. Pt denies recent travel or sick contacts. Endorses some rhinorrhea, shortness of breath. Also reports feeling dizzy and weak. Denies a history of prior C diff. Allergies Allergy/AdvReac Type Severity Reaction Status Date / Time NSAIDS (Non-Steroidal AdvReac Severe "RIPS UP Verified 07/14/25 19:32 Anti-Inflamma MY STOMACH AND GUTS" prednisone AdvReac Intermediate PER PT Verified 07/14/25 19:32 "EFFECTING THE RETINAS IN MY EYES, PER MD" Home Medications Medication Instructions Recorded Confirmed Type loperamide 2 mg capsule 2 mg PO QID PRN LOOSE STOOLS 07/14/25 07/14/25 History ondansetron 8 mg disintegrating 8 mg translingual Q8H PRN 07/14/25 07/14/25 History tablet NAUSEA/VOMITING oxycodone 5 mg tablet 5 mg PO .Q4-6HR PRN Pain 07/14/25 07/14/25 History prochlorperazine maleate 10 mg 10 mg PO Q6H PRN NAUSEA/VOMITING 07/14/25 07/14/25 History tablet trifluridine 20 mg-tipiracil 8.19 3 tab PO BID 07/14/25 07/14/25 History mg tablet (Lonsurf) Patient History Social History Smoking Status: Current every day smoker Tobacco Type: Cigarettes Second Hand Exposure: No; Do You Dip or Chew Tobacco: No; Tobacco Cessation Education Requested by Patient: No Hx Alcohol Use: No Hx Substance Use: No Communication Ability: Effective Beliefs That Will Affect Care: None Current Living Situation: Spouse Other Information That Helps Us Care for You: No Feels Safe at Home: Yes Safety Concerns: Feels Safe At This Time Assistive Devices: Cane, Glasses and Other Assistive Devices Comment: shower chair Review of System A complete ROS was performed and is negative except as mentioned in the HPI. Physical Exam Physical Exam: GEN: uncomfortable appearing, sitting up at side of bed bending over table in discomfort RESP: No increased work of breathing NEURO: Alert and oriented. Answers all questions appropriately. Speech not slurred. PSYCH: Normal mood, affect appropriate. Results & Data Vital Signs (Past 12 Hours) Vital Signs Temp Pulse Resp BP Pulse Ox O2 Del Method 07/15/25 07:30 37.6 C H 76 18 117/58 L 96 Room Air 07/15/25 03:01 38.2 C H 108 H 16 124/73 98 Room Air Laboratory Results Short CBC 07/15/25 Range/Units 07:37 WBC 0.17 L* (4.8-10.8) K/ul Hgb 10.0 L D (12.0-16.0) g/dl Hct 27.7 L (37.0-47.0) % Plt Count 53 L (130-400) K/uL BMP 07/14/25 07/15/25 18:01 07:28 Sodium 130 L 129 L Potassium 2.9 L 2.9 L Chloride 97 L 97 L Carbon Dioxide 23 23 BUN 14 9 Creatinine 0.48 L 0.41 L Glucose 128 H 126 H Calcium 8.2 L 8.2 L Diagnostic Findings Abdomen/Pelvis CT 07/14/25 17:30 Clinical History: Abdominal pain Technique: Axial computed tomography images were obtained of the abdomen and pelvis after the administration of intravenous contrast. Comparison is made to the prior CT dated 04/08/2025. Findings: The liver is overall of normal size, attenuation, and contour with no sign of cirrhosis or significant fatty infiltration. There is an unchanged 4 mm cyst in the left hepatic lobe. No liver mass lesion is seen. The portal vein is patent. The gallbladder appears unremarkable. No bile duct dilatation is noted. The spleen is of normal size. No focal splenic lesion is evident. The pancreas appears normal with no sign of acute or chronic pancreatitis and no mass lesion noted. The pancreatic duct is of normal caliber. The adrenal glands appear unremarkable. No definite renal or proximal ureteral calculi are seen on this contrast-enhanced study. There is no hydronephrosis or perinephric stranding. No renal mass lesion is identified. There is a small 8 x 3 mm cyst in the mid left kidney. The aorta is of normal caliber. No abdominal adenopathy is seen. There is a small epigastric hernia containing fat The stomach appears normal. There is no sign of small bowel obstruction. There is new wall thickening of the distal jejunum and ileum with adjacent mild mesenteric edema. No free intraperitoneal fluid or air is identified. Anastomotic sutures are again seen of the sigmoid colon. There is a 4.1 x 3.2 cm low attenuation lesion abutting the mid sigmoid colon, previously 3.3 x 2.7 cm. Posterosuperior to this, there is a 3.7 x 2.9 cm low attenuation lesion, previously 3.5 x 2.5 centimeters. Superior to this, there is a 2.6 x 2.3 cm lesion that previously measured 2 x 1.9 cm. No distal ureteral or bladder calculi are seen. No bladder mass lesion is evident. The iliac arteries are of normal caliber. The uterus has been removed The lungs bases appear clear. Lumbar degenerative disc disease is seen. No fracture is identified. No focal osseous lesion is seen Impression: 1. New small bowel wall thickening, consistent with infectious enteritis or inflammatory bowel disease 2. Interval increase in size of 3 low-attenuation lesions in the left pelvis, concerning for worsening metastatic disease 3. Small epigastric hernia containing only fat 4. Small left renal cyst ACT 112: Positive. There are findings on this exam that require communication between the performing entity and the patient following Patient Test Result Information Act ([place] ACT 112) guidelines. Electronically signed by Romel Alonso 07-14-2025 7:16 PM Chest X-Ray 07/14/25 17:30 Chest radiograph, one view History: Sepsis Comparison: None Findings: Single AP view of the chest performed. No focal consolidation or pleural effusion. No pneumothorax. The cardiomediastinal silhouette is within normal limits. Normal pulmonary vascularity. No evidence for lymphadenopathy. No visualized bony or soft tissue abnormality. Impression: Normal chest radiograph Electronically signed by Etienne Fitzgerald 07-14-2025 6:26 PM Medications Administered Current Inpatient Medications Acetaminophen (Acetaminophen 325 Mg Tab) 650 mg PO Q4H PRN PRN Reason: Pain or Fever Stop: 08/13/25 21:51 Last Admin: 07/15/25 05:31 Dose: 650 mg Al Hydrox/Mg Hydrox/Simethicone (Aluminum/Magnesium Susp 30 Ml Udc) 15 ml PO Q 4H PRN PRN Reason: Dyspepsia Stop: 08/13/25 21:51 Fidaxomicin (Fidaxomicin 200 Mg Tab) 200 mg PO BID [facility] Stop: 07/25/25 08:59 Cefepime HCl (Maxipime 2000mg) 2,000 mg in 20 mls @ 5 mls/min IV Q8H [facility]; Protocol Stop: 07/20/25 02:59 Last Admin: 07/15/25 03:14 Dose: 5 mls/min Lactated Ringer's (Lr) 1,000 mls @ 80 mls/hr IV .[id number] [facility] Stop: 07/15/25 22:59 Last Admin: 07/14/25 22:25 Dose: 80 mls/hr Melatonin (Melatonin 3 Mg Tab) 3 mg PO HS PRN PRN Reason: Sleep Stop: 08/13/25 21:51 Ondansetron HCl (Ondansetron 4 Mg Od Tab) 4 mg SL Q8H PRN PRN Reason: NAUSEA/VOMITING Stop: 08/13/25 21:53 Ondansetron HCl (Ondansetron Inj 2 Mg/Ml 2 Ml Vial) 4 mg IV Q6H PRN PRN Reason: Nausea Stop: 08/13/25 21:51 Last Admin: 07/14/25 22:24 Dose: 4 mg Oxycodone HCl (Oxycodone Hcl Ir 5 Mg Tab (Immediate Release)) 5 mg PO Q4H PRN PRN Reason: Pain Stop: 07/29/25 09:20 Prochlorperazine (Prochlorperazine Maleate 10 Mg Tab) 10 mg PO Q6H PRN PRN Reason: NAUSEA/VOMITING Stop: 08/13/25 21:51
[2025-07-15] MEDS: FIDAXOMICIN 200 MG TAB PO SCH (10:10)
[2025-07-15] MEDS: INFLUENZA VACC TS2025-26(65y+)/PF (IIV3) 0.5mL Syr IM ONE (18:45)
[2025-07-16] MEDS: PROCHLORPERAZINE 10 MG in SYRINGE 8 ML IV ONE (03:40)
[2025-07-16 07:32] LABS: Hematocrit (blood only) 27.9 % (37.0-47.0); Hemoglobin 10.0 g/dl (12.0-16.0); Mean Corpuscular Hemoglobin 29.1 pg (25.0-34.0); Mean Corpuscular Volume 81.1 fL (80.0-100.0); Platelet Count 42 K/uL (130-400); RDW Standard Deviation 37.9 fL (36.4-46.3); Red Blood Count 3.44 M/uL (4.20-5.40); White Blood Count 0.16 K/ul (4.8-10.8)
[2025-07-16 07:51] LABS: Anion Gap 11.0 (3-11); Blood Urea Nitrogen 8.0 mg/dl (6-23); Calcium 8.2 mg/dl (8.6-10.3); Carbon Dioxide 24.0 mmol/L (21-32); Chloride 93.0 mmol/L (98-107); Creatinine Clr Calc Pharmacy 143.6 ml/min; Glucose 102.0 mg/dl (70-99(Fasting)); Potassium 2.3 mmol/L (3.5-5.1); Sodium 128.0 mmol/L (136-145)
[2025-07-16] MEDS: POTASSIUM CHLORIDE / WTR 10 MEQ/100 ML PLCT IV SCH (08:50)
[2025-07-16] MEDS: SODIUM CHLORIDE 0.9% 1,000 ML IV SCH (09:00)
--- NOTE | 2025-07-16 09:59 | Hospitalist Progress Note ---
Date of Service July 16, 2025 Assessment & Plan (1) UTI (urinary tract infection): Plan: -on cefepime -urine culture negative so far (2) Neutropenia: Plan: -colon CA -on lonsurf -WBC 0.17 today -heme-onc consulted (3) Nausea, vomiting and diarrhea: Plan: -c.diff B + with symptoms -Fidaxomicin IV Q12 -ID consult appreciated (4) Hyponatremia: Plan: -on NS IVF -f/u BMP (5) Hypomagnesemia: Plan: -repleated (6) Hypokalemia: Plan: -repleated (7) Hypocalcemia: Plan: -calcium gluconate give (8) Elevated troponin: Plan: EKG sinus tachycardia @ 117 bpm, no ischemic changes - Likely 2/2 demand Plan 65-year-old female PMHx stage IV colon cancer on immunotherapy presenting from [facility] for N/V/D as well as electrolyte abnormalities as identified on outpatient labs. Her evaluation does reveal that she is leukopenic and neutropenic at 0.32 and <0.5 respectively. Electrolyte abnormalities include decreased sodium, potassium, calcium and magnesium. Slightly elevated bilirubin with decreased AST, elevated alkaline phosphatase. Procalcitonin minimally elevated with normal lactate and presence of UTI. CTAP revealing findings consistent with infectious enteritis or IBS. Admission for neutropenia in setting of UTI, enteritis, and electrolyte abnormalities. Admission and Anticipated Discharge Date Admission Date: July 14, 2025 Subjective No events overnight. Pt still having diarrhea and abdominal pain. Review of Systems Review of Systems: CONST: Negative for fever, body aches and chills. HENT: Negative for neck pain/stiffness, headache, congestion, sore throat, swelling. EYES: Negative for discharge/pain or vision changes. RESP: Negative for cough/hemoptysis and shortness of breath. CV: Negative chest pain, difficulty breathing, palpitations. ABD: Negative pain, nausea, vomiting. : Negative increase frequency, dysuria, blood in urine or stool. MUSC: Negative for muscle aches, edema. SKIN: Negative rash, lesions/sores. NEURO: Negative headache, dizziness, weakness. Physical Exam Physical Exam: GENERAL APPEARANCE NAD, activity normal for age, well developed/ well nourished, no cyanosis, pallor, or diaphoresis. EYES lids/conjunctiva normal. EARS/NOSE/THROAT Mucous membranes moist, nares normal, lips/teeth normal uvula midline without oral pharyngeal erythema, exudate or swelling TMs normal bilaterally. No lymphangitis/lymphedema. HEAD/NECK normocephalic atraumatic, no facial trauma, neck is supple. RESPIRATORY respiratory effort normal, speaks in full sentences, no tripod position, no accessory muscle use. Lungs clear to auscultation without rhonchi, wheezes, rales CARDIAC Regular rate and rhythm, no edema. ABDOMINAL Soft, ND/NT. No evidence of fluid wave. No pulsatile masses on exam, rebound tenderness, York sign or pain over Mcburney's point. MUSCLES/EXTREMITIES No abnormal range of motion, no swelling. SKIN Warm, pink and dry. No rashes, dermatoses, petechiae or lesions. NEUROLOGICAL Speech is clear and appropriate. Normal level of consciousness. Gait and coordination are normal. 5/5 strength in all extremities. PSYCH Normal mood and affect. Judgement/competence is appropriate Results & Data Results & Data Vital Signs (Past 12 Hours) Vital Signs Temp Pulse Pulse Resp BP Pulse Ox O2 Del Method 07/16/25 08:33 37.1 C 73 17 116/70 96 Room Air 07/16/25 05:27 37.5 C 07/16/25 02:23 37.8 C H 102 H 18 124/72 96 Room Air 07/15/25 23:11 37.2 C 75 16 120/68 95 Room Air 07/15/25 22:11 73 PG Care Time/CCT Total # of Minutes Spent Total Time Spent with Patient: Total time spent is greater than 50% in coordination of care (as documented) at patient's floor/unit and/or counseling patient: Coding Level of Care Code 18826 SUB INP/OBS CARE 2/35MIN Diagnoses UTI (urinary tract infection) N39.0 Neutropenia D70.9 Nausea, vomiting and diarrhea R11.2; R19.7 Hyponatremia E87.1 Hypomagnesemia E83.42 Hypokalemia E87.6 Hypocalcemia E83.51 Elevated troponin R79.89
--- NOTE | 2025-07-16 12:18 | Infectious Disease Progress Nt ---
Date of Service July 16, 2025 Assessment & Plan (1) Neutropenic fever: (2) C. difficile colitis: Plan Problems: #Neutropenic fever #Diarrhea #N/V #Colon cancer on Lonsurf Micro: 07/14 Stool pathogen panel: positive C diff gene, negative C diff toxin 07/14 BCx x2: NGTD 07/14 UCx: three types of organisms, all high counts probable skin richard Abx: Cefepime 07/14 - present Fidaxomicin 07/15 - present 65 yo F with stage IV colon cancer on immunotherapy who presented from [facility] on 07/14/25 for N/V/D, outpatient lab abnormalities, found to have neutropenic fever and likely C diff. 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 Reports >5 episodes of watery diarrhea a day. Denies fevers or chills. Denies dysuria or urinating more frequently than usual. She reports that in the last few weeks, her oncologist prescribed her an antibiotic for UTI (she does not recall the name of the antibiotic). On presentation, pt was afebrile, HR 123, BP 131/78. Became febrile to 38.2 overnight. Labs showed WBC 0.32, ANC < 500, Hb 13.6, plt 106, Cr 0.75. UA with 6-[address] A/P with IV contrast showed new small bowel wall thickening, consistent with infectious enteritis or inflammatory bowel disease. Pt was started on cefepime. Stool pathogen panel came back C diff toxin gene positive, toxin negative. BCx NGTD. UCx with mixed probable skin richard. Pt denies recent travel or sick contacts. Endorses some rhinorrhea, shortness of breath. Also reports feeling dizzy and weak. Denies a history of prior C diff. Discussion: C diff toxin gene positive, toxin negative--could indicate colonization, but in the setting of recent antibiotic exposure and frequent diarrhea, will treat as C diff. Recommendations: - Continue fidaxomicin 200 mg PO BID to complete a 10 day course - Continue cefepime for now given neutropenic fever--if blood cultures remain negative, can discontinue cefepime on 07/17 Please note that ID does not round or write notes over the weekend. If questions or concerns arise, please contact the Infectious Disease Call Center and ask to speak with the covering ID physician. Dr. Zita South will take over on Saturday. Admission and Anticipated Discharge Date Admission Date: July 14, 2025 Subjective This patient recommendation is based on a telemedicine consult request which was completed asynchronously through chart review and information provided by the primary physician. The patient was not seen or examined today. The evaluation is consultative in nature and all patient care and treatment decisions can either be accepted or rejected by the patient's primary hospital-based treating physician using their own independent medical judgment for their patient. Time Spent Reviewing Chart: 11 - 20 minutes Continues with diarrhea, abd pain Results & Data Vital Signs (Past 12 Hours) Vital Signs Temp Pulse Pulse Resp BP Pulse Ox O2 Del Method 07/16/25 11:10 77 07/16/25 08:33 37.1 C 73 17 116/70 96 Room Air 07/16/25 05:27 37.5 C 07/16/25 02:23 37.8 C H 102 H 18 124/72 96 Room Air
[2025-07-17] MEDS: HYDROmorphone INJ 0.5 MG/0.5 ML SYR IV ONE (05:05)
[2025-07-17 07:08] LABS: Hematocrit (blood only) 27.9 % (37.0-47.0); Hemoglobin 10.0 g/dl (12.0-16.0); Mean Corpuscular Hemoglobin 29.3 pg (25.0-34.0); Mean Corpuscular Volume 81.8 fL (80.0-100.0); RDW Standard Deviation 39.1 fL (36.4-46.3); Red Blood Count 3.41 M/uL (4.20-5.40)
[2025-07-17 07:15] LABS: White Blood Count 0.24 K/ul (4.8-10.8)
[2025-07-17 07:16] LABS: Platelet Count 25 K/uL (130-400)
[2025-07-17 07:27] LABS: Anion Gap 10.0 (3-11); Blood Urea Nitrogen 8.0 mg/dl (6-23); Calcium 7.8 mg/dl (8.6-10.3); Carbon Dioxide 24.0 mmol/L (21-32); Chloride 94.0 mmol/L (98-107); Creatinine Clr Calc Pharmacy 125.6 ml/min; Glucose 100.0 mg/dl (70-99(Fasting)); Potassium 2.3 mmol/L (3.5-5.1); Sodium 128.0 mmol/L (136-145)
[2025-07-17 08:36] LABS: Magnesium 1.7 mg/dl (1.7-2.4)
[2025-07-17] MEDS: POTASSIUM CHLORIDE / WTR 10 MEQ/100 ML PLCT IV SCH (09:30)
--- NOTE | 2025-07-17 10:23 | Hospitalist Progress Note ---
Date of Service July 17, 2025 Assessment & Plan (1) UTI (urinary tract infection): Plan: -on cefepime -urine culture negative so far (2) Neutropenia: Plan: -colon CA -on lonsurf -WBC 0.17 today -heme-onc consulted (3) Nausea, vomiting and diarrhea: Plan: -c.diff B + with symptoms -Fidaxomicin IV Q12 -ID consult appreciated (4) Hyponatremia: Plan: -on NS IVF -f/u BMP (5) Hypomagnesemia: Plan: -repleated (6) Hypokalemia: Plan: -K+ 2.3 -repeated (7) Hypocalcemia: Plan: -calcium gluconate give (8) Elevated troponin: Plan: EKG sinus tachycardia @ 117 bpm, no ischemic changes - Likely 2/2 demand Plan 65-year-old female PMHx stage IV colon cancer on immunotherapy presenting from [facility] for N/V/D as well as electrolyte abnormalities as identified on outpatient labs. Her evaluation does reveal that she is leukopenic and neutropenic at 0.32 and <0.5 respectively. Electrolyte abnormalities include decreased sodium, potassium, calcium and magnesium. Slightly elevated bilirubin with decreased AST, elevated alkaline phosphatase. Procalcitonin minimally elevated with normal lactate and presence of UTI. CTAP revealing findings consistent with infectious enteritis or IBS. Admission for neutropenia in setting of UTI, enteritis, and electrolyte abnormalities. Admission and Anticipated Discharge Date Admission Date: July 14, 2025 Subjective Diarrhea has improved. Review of Systems Review of Systems: CONST: Negative for fever, body aches and chills. HENT: Negative for neck pain/stiffness, headache, congestion, sore throat, swelling. EYES: Negative for discharge/pain or vision changes. RESP: Negative for cough/hemoptysis and shortness of breath. CV: Negative chest pain, difficulty breathing, palpitations. ABD: Negative pain, nausea, vomiting. : Negative increase frequency, dysuria, blood in urine or stool. MUSC: Negative for muscle aches, edema. SKIN: Negative rash, lesions/sores. NEURO: Negative headache, dizziness, weakness. Physical Exam Physical Exam: GENERAL APPEARANCE NAD, activity normal for age, well developed/ well nourished, no cyanosis, pallor, or diaphoresis. EYES lids/conjunctiva normal. EARS/NOSE/THROAT Mucous membranes moist, nares no rmal, lips/teeth normal uvula midline without oral pharyngeal erythema, exudate or swelling TMs normal bilaterally. No lymphangitis/lymphedema. HEAD/NECK normocephalic atraumatic, no facial trauma, neck is supple. RESPIRATORY respiratory effort normal, speaks in full sentences, no tripod position, no accessory muscle use. Lungs clear to auscultation without rhonchi, wheezes, rales CARDIAC Regular rate and rhythm, no edema. ABDOMINAL Soft, ND/NT. No evidence of fluid wave. No pulsatile masses on exam, rebound tenderness, York sign or pain over Mcburney's point. MUSCLES/EXTREMITIES No abnormal range of motion, no swelling. SKIN Warm, pink and dry. No rashes, dermatoses, petechiae or lesions. NEUROLOGICAL Speech is clear and appropriate. Normal level of consciousness. Gait and coordination are normal. 5/5 strength in all extremities. PSYCH Normal mood and affect. Judgement/competence is appropriate Results & Data Results & Data Vital Signs (Past 12 Hours) Vital Signs Temp Pulse Pulse Resp BP BP Pulse Ox 07/17/25 07:25 105 H 07/17/25 07:16 36.8 C 95 H 16 118/75 97 07/17/25 03:07 38.7 C H 111 H 18 125/78 92 07/17/25 00:21 37.1 C 94 H 20 110/62 92 O2 Del Method 07/17/25 07:25 07/17/25 07:16 Room Air 07/17/25 03:07 Room Air 07/17/25 00:21 Room Air PG Care Time/CCT Total # of Minutes Spent Total Time Spent with Patient: Total time spent is greater than 50% in coordination of care (as documented) at patient's floor/unit and/or counseling patient: Coding Level of Care Code 19243 SUB INP/OBS CARE 2/35MIN Diagnoses UTI (urinary tract infection) N39.0 Neutropenia D70.9 Nausea, vomiting and diarrhea R11.2; R19.7 Hyponatremia E87.1 Hypomagnesemia E83.42 Hypokalemia E87.6 Hypocalcemia E83.51 Elevated troponin R79.89
[2025-07-18 08:40] LABS: Hematocrit (blood only) 28.9 % (37.0-47.0); Hemoglobin 10.4 g/dl (12.0-16.0); Mean Corpuscular Hemoglobin 28.8 pg (25.0-34.0); Mean Corpuscular Volume 80.1 fL (80.0-100.0); Platelet Count 19 K/uL (130-400); RDW Standard Deviation 38.4 fL (36.4-46.3); Red Blood Count 3.61 M/uL (4.20-5.40); White Blood Count 0.13 K/ul (4.8-10.8)
[2025-07-18 08:53] LABS: Anion Gap 12.0 (3-11); Blood Urea Nitrogen 8.0 mg/dl (6-23); Calcium 7.8 mg/dl (8.6-10.3); Carbon Dioxide 21.0 mmol/L (21-32); Chloride 95.0 mmol/L (98-107); Creatinine Clr Calc Pharmacy 135.9 ml/min; Glucose 97.0 mg/dl (70-99(Fasting)); Magnesium 1.6 mg/dl (1.7-2.4); Potassium 2.0 mmol/L (3.5-5.1); Sodium 128.0 mmol/L (136-145)
--- NOTE | 2025-07-18 11:07 | Nephrology Consultation ---
Date of Consultation July 18, 2025 Assessment & Plan (1) Hypokalemia: (2) Hyponatremia: (3) Hypomagnesemia: (4) Hypocalcemia: (5) C. difficile colitis: (6) Neutropenic fever: (7) UTI (urinary tract infection): (8) Nausea, vomiting and diarrhea: Plan 65-year-old female with stage IV metastatic colon cancer, on chemo and immunotherapy, admitted to the hospital with nausea, vomiting, diarrhea for about 2 weeks and found to have critical electrolyte abnormality. Potassium staying critically low despite getting IV potassium replacement. K 2.0, Sodium staying low at 128. Serum calcium and magnesium slightly improved. Blood pressure has been variable. --Continue on IV replacement of electrolyte as she continues to have significant nausea and vomiting and not able to take po. --Change IV normal saline to normal saline plus KCl 40 mEq/L --Calcium gluconate 1 g IV x 1 dose now Thank you for allowing me to participate in your patient's care. It was a pleasure to see Nidia. History of Present Illness Reason for Consultation: Critical electrolyte abnormalities Attending Physician: Hadley Zhao MD History of Present Illness Ms. Nidia Nicole is a 65-year-old female with past medical history significant for stage IV metastatic colon cancer on chemo and immunotherapy, admitted to the hospital with vomiting and diarrhea as well as critical electrolyte abnormality. Nephrology consult was requested for management of electrolyte abnormality. EMR records were reviewed in detail during patient's visit. Nidia admitted to the hospital on 07/14/2025 after she was found to have critical electrolyte abnormality in the setting of nausea, vomiting and diarrhea during outpatient oncology follow-up. ER lab was notable for neutropenia, thrombocytopenia as well as electrolyte abnormality. WBC 0.32, H&H 13.6, platelets 106, neutrophils <0.5. Sodium was 130, potassium 2.9, chloride 97, creatinine 0.48, calcium 8.2; magnesium 1.6. UA positive for infection; BioFire negative; CXR WNL; CTAP new small bowel wall thickening consistent with infectious enteritis or IBS, interval increase in size 3 low-attenuation lesion of L pelvis concerning for worsening metastatic disease. She has been getting IV normal saline, potassium supplement however sodium dropped further to 128 and potassium has been staying persistently below and dropped further to 2.0 this morning. Magnesium slightly low at 1.6. WBC further dropped and platelet now dropped to less than 30 and she is currently on cefepime for neutropenia. Also on Dificid for diarrhea. Diagnosed with stage IV colon cancer 5 years ago s/p multiple Sx and chemo/immunotherapy, but she developed intractable intractable nausea vomiting and diarrhea for about 2 weeks. Has been on Lonsurf but she has not been taking the medication correctly prior to admission. Blood pressure has been variable but no h/o HTN, DM. She is feeling poorly with significant abdominal pain, nausea and feels like she does not want to continue like this anymore. Allergies Allergy/AdvReac Type Severity Reaction Status Date / Time NSAIDS (Non-Steroidal AdvReac Severe "RIPS UP Verified 07/14/25 19:32 Anti-Inflamma MY STOMACH AND GUTS" prednisone AdvReac Intermediate PER PT Verified 07/14/25 19:32 "EFFECTING THE RETINAS IN MY EYES, PER MD" Home Medications Medication Instructions Recorded Confirmed Type loperamide 2 mg capsule 2 mg PO QID PRN LOOSE STOOLS 07/14/25 07/14/25 History ondansetron 8 mg disintegrating 8 mg translingual Q8H PRN 07/14/25 07/14/25 History tablet NAUSEA/VOMITING oxycodone 5 mg tablet 5 mg PO .Q4-6HR PRN Pain 07/14/25 07/14/25 History prochlorperazine maleate 10 mg 10 mg PO Q6H PRN NAUSEA/VOMITING 07/14/25 07/14/25 History tablet trifluridine 20 mg-tipiracil 8.19 3 tab PO BID 07/14/25 07/14/25 History mg tablet (Lonsurf) Patient History Social History Smoking Status: Current every day smoker Tobacco Type: Cigarettes Second Hand Exposure: No; Do You Dip or Chew Tobacco: No; Tobacco Cessation Education Requested by Patient: No Hx Alcohol Use: No Hx Substance Use: No Communication Ability: Effective Beliefs That Will Affect Care: None Current Living Situation: Spouse Other Information That Helps Us Care for You: No Feels Safe at Home: Yes Safety Concerns: Feels Safe At This Time Assistive Devices: Cane Assistive Devices Comment: shower chair Review of Systems Review of Systems: Detailed review of system was done and pertinent positives and negatives are mentioned above. Physical Exam Constitutional: WD/WN, vitals as above + acute distress and + ill appearing Eyes: + anicteric sclerae Respiratory: no respiratory distress Auscultation: lungs clear to auscultation bilaterally Cardiovascular: RRR, no murmur, no edema Gastrointestinal (Abdomen): Inspection/Auscultation: abdomen normal to inspection Percussion/Palpation: + abdomen tender and abdomen soft Musculoskeletal: Extremities: extremities normal to inspection Skin: no rashes, warm and dry Neurologic: no focal motor deficits Psychiatric: Orientation: alert and oriented x 3 Affect: euthymic affect Results & Data Vital Signs (Past 12 Hours) Vital Signs Temp Pulse Pulse Resp BP BP Pulse Ox 07/18/25 10:55 37.2 C 103 H 18 147/87 H 97 07/18/25 07:27 112 H 07/18/25 06:43 36.8 C 95 H 18 118/75 97 07/18/25 03:34 37.0 C 109 H 20 132/87 96 07/17/25 23:57 37.1 C 109 H 24 149/93 H 98 O2 Del Method 07/18/25 10:55 Room Air 07/18/25 07:27 07/18/25 06:43 Room Air 07/18/25 03:34 Room Air 07/17/25 23:57 Room Air PG Care Time/CCT Total # of Minutes Spent Total Time Spent with Patient: Total time spent is greater than 50% in coordination of care (as documented) at patient's floor/unit and/or counseling patient: Coding Level of Care Code 67566 INT INP/OBS CARE 3/75MIN Diagnoses Hypokalemia E87.6 Hyponatremia E87.1 Hypomagnesemia E83.42 Hypocalcemia E83.51 C. difficile colitis A04.72 Neutropenic fever D70.9; R50.81 UTI (urinary tract infection) N39.0 Nausea, vomiting and diarrhea R11.2; R19.7
[2025-07-18] MEDS: POTASSIUM CHLORIDE / WTR 10 MEQ/100 ML PLCT IV SCH ×2 (11:18→18:16)
[2025-07-18] MEDS: CALCIUM GLUCONATE 1,000 MG/60 ML BAG IV STA (11:49)
--- NOTE | 2025-07-18 12:12 | Hospitalist Progress Note ---
Date of Service July 18, 2025 Assessment & Plan (1) Nausea, vomiting and diarrhea: Plan: -c.diff B + with symptoms -Fidaxomicin IV Q12 -ID consult appreciated (2) UTI (urinary tract infection): Plan: -on cefepime -urine culture negative so far (3) Neutropenia: Plan: -colon CA -on lonsurf -WBC 0.17 -heme-onc consulted (4) Hyponatremia: Plan: -on NS IVF -f/u BMP (5) Hypomagnesemia: Plan: -repleated (6) Hypokalemia: Plan: -K+ 2.0 -repeated -Nephrology consult appreciated -IVF change to at KCl (7) Hypocalcemia: Plan: -calcium gluconate given (8) Elevated troponin: Plan: EKG sinus tachycardia @ 117 bpm, no ischemic changes - Likely 2/2 demand (9) Colon cancer: Plan: - 5 years -on immunotherapy -pt not wanting to move forward with treatment however not willing to give up -palliative care consulted 07/18 Plan 65-year-old female PMHx stage IV colon cancer on immunotherapy [facility]D as well as electrolyte abnormalities as identified on outpatient labs. Her evaluation does reveal that she is leukopenic and neutropenic at 0.32 and <0.5 respectively. Electrolyte abnormalities include decreased sodium, potassium, calcium and magnesium. Slightly elevated bilirubin with decreased AST, elevated alkaline phosphatase. Procalcitonin minimally elevated with normal lactate and presence of UTI. CTAP revealing findings consistent with infectious enteritis or IBS. Admission for neutropenia in setting of UTI, enteritis, and electrolyte abnormalities. Admission and Anticipated Discharge Date Admission Date: July 14, 2025 Subjective Pt still with episodes of diarrhea. She does not want to go on living like this, feels that she is "done." Review of Systems Review of Systems: CONST: Negative for fever, body aches and chills. HENT: Negative for neck pain/stiffness, headache, congestion, sore throat, swelling. EYES: Negative for discharge/pain or vision changes. RESP: Negative for cough/hemoptysis and shortness of breath. CV: Negative chest pain, difficulty breathing, palpitations. ABD: Negative pain, nausea, vomiting. : Negative increase frequency, dysuria, blood in urine or stool. MUSC: Negative for muscle aches, edema. SKIN: Negative rash, lesions/sores. NEURO: Negative headache, dizziness, weakness. Physical Exam Physical Exam: GENERAL APPEARANCE NAD, activity normal for age, well developed/ well nourished, no cyanosis, pallor, or diaphoresis. EYES lids/conjunctiva normal. EARS/NOSE/THROAT Mucous membranes moist, nares normal, lips/teeth normal uvula midline without oral pharyngeal erythema, exudate or swelling TMs normal bilaterally. No lymphangitis/lymphedema. HEAD/NECK normocephalic atraumatic, no facial trauma, neck is supple. RESPIRATORY respiratory effort normal, speaks in full sentences, no tripod position, no accessory muscle use. Lungs clear to auscultation without rhonchi, wheezes, rales CARDIAC Regular rate and rhythm, no edema. ABDOMINAL Soft, ND/NT. No evidence of fluid wave. No pulsatile masses on exam, rebound tenderness, York sign or pain over Mcburney's point. MUSCLES/EXTREMITIES No abnormal range of motion, no swelling. SKIN Warm, pink and dry. No rashes, dermatoses, petechiae or lesions. NEUROLOGICAL Speech is clear and appropriate. Normal level of consciousness. Gait and coordination are normal. 5/5 strength in all extremities. PSYCH Normal mood and affect. Judgement/competence is appropriate Results & Data Results & Data Vital Signs (Past 12 Hours) Vital Signs Temp Pulse Pulse Resp BP BP Pulse Ox 07/18/25 10:55 37.2 C 103 H 18 147/87 H 97 07/18/25 07:27 112 H 07/18/25 06:43 36.8 C 95 H 18 118/75 97 07/18/25 03:34 37.0 C 109 H 20 132/87 96 O2 Del Method 07/18/25 10:55 Room Air 07/18/25 07:27 07/18/25 06:43 Room Air 07/18/25 03:34 Room Air PG Care Time/CCT Total # of Minutes Spent Total Time Spent with Patient: Total time spent is greater than 50% in coordination of care (as documented) at patient's floor/unit and/or counseling patient: Coding Level of Care Code 39739 SUB INP/OBS CARE 2/35MIN Diagnoses Nausea, vomiting and diarrhea R11.2; R19.7 UTI (urinary tract infection) N39.0 Neutropenia D70.9 Hyponatremia E87.1 Hypomagnesemia E83.42 Hypokalemia E87.6 Hypocalcemia E83.51 Elevated troponin R79.89 Colon cancer C18.9
[2025-07-18] MEDS ORDERED: NSS + 20MEQ KCL 20 MEQ/1,000 ML BAG IV SCH (12:15)
[2025-07-18] MEDS: POTASSIUM CHLORIDE 40 MEQ in SODIUM CHLORIDE 0.9% 1,000 ML IV SCH (15:52)
[2025-07-18 16:47] LABS: Anion Gap 11.0 (3-11); Blood Urea Nitrogen 7.0 mg/dl (6-23); Calcium 8.2 mg/dl (8.6-10.3); Carbon Dioxide 21.0 mmol/L (21-32); Chloride 96.0 mmol/L (98-107); Creatinine Clr Calc Pharmacy 139.9 ml/min; Glucose 98.0 mg/dl (70-99(Fasting)); Potassium 2.5 mmol/L (3.5-5.1); Sodium 128.0 mmol/L (136-145)
[2025-07-18] MEDS: MoRPHine SULFATE 4 MG/ML 1 ML CARP\\VIAL IV PRN (18:11)
[2025-07-18] MEDS: SODIUM CHLORIDE 0.9% 500 ML IV SCH (18:16)
[2025-07-19 06:23] LABS: Hematocrit (blood only) 29.2 % (37.0-47.0); Hemoglobin 10.9 g/dl (12.0-16.0); Mean Corpuscular Hemoglobin 29.5 pg (25.0-34.0); Mean Corpuscular Volume 79.1 fL (80.0-100.0); Platelet Count 20 K/uL (130-400); RDW Standard Deviation 37.4 fL (36.4-46.3); Red Blood Count 3.69 M/uL (4.20-5.40); White Blood Count 0.16 K/ul (4.8-10.8)
[2025-07-19 06:38] LABS: Anion Gap 10.0 (3-11); Blood Urea Nitrogen 8.0 mg/dl (6-23); Calcium 8.0 mg/dl (8.6-10.3); Carbon Dioxide 21.0 mmol/L (21-32); Chloride 97.0 mmol/L (98-107); Creatinine Clr Calc Pharmacy 162.0 ml/min; Glucose 95.0 mg/dl (70-99(Fasting)); Magnesium 1.6 mg/dl (1.7-2.4); Potassium 2.4 mmol/L (3.5-5.1); Sodium 128.0 mmol/L (136-145)
[2025-07-19] MEDS: POTASSIUM CHLORIDE / WTR 10 MEQ/100 ML PLCT IV SCH (07:14)
--- NOTE | 2025-07-19 09:48 | Nephrology Progress Note ---
Date of Service July 19, 2025 Assessment & Plan (1) Hypokalemia: (2) Hyponatremia: (3) Hypomagnesemia: (4) Hypocalcemia: (5) C. difficile colitis: (6) Neutropenic fever: (7) UTI (urinary tract infection): (8) Nausea, vomiting and diarrhea: Plan 65-year-old female with stage IV metastatic colon cancer, on chemo and immunotherapy, admitted to the hospital with nausea, vomiting, diarrhea for about 2 weeks and found to have critical electrolyte abnormality. Potassium s taying critically low despite getting IV potassium replacement. K 2.0, Sodium staying low at 128. Serum calcium and magnesium slightly improved. Blood pressure has been variable. Continues to have critical hypokalemia on IV KCL as could not tolerate po with nausea. --Continue on IV replacement of electrolyte as she continues to have significant nausea and vomiting and not able to take po. --IV normal saline to normal saline plus KCl 40 mEq/L --waiting on oncology and Palliative care evaluation to discuss goals of care as she repeatedly expressed that she does not want to continue like this. Admission and Anticipated Discharge Date Admission Date: July 14, 2025 Nash Jacob was seen and evaluated this morning. She reports feeling poorly with on going abdominal pain, Nausea. BP elevated. K staying low at 2.4, Na 128 on IV NS and KCL. Review of Systems Review of Systems: Detailed review of system was done and pertinent positives and negatives are m entioned above. Physical Exam Constitutional: WD/WN, vitals as above + acute distress and + ill appearing Eyes: + anicteric sclerae Psychiatric: Orientation: alert and oriented x 3 Affect: euthymic affect Results & Data Vital Signs (Past 12 Hours) Vital Signs Temp Pulse Pulse Resp BP BP Pulse Ox 07/19/25 07:41 37.4 C 107 H 20 157/94 H 96 07/19/25 07:26 105 H 07/19/25 03:57 36.7 C 110 H 22 162/83 H 97 07/19/25 00:16 37.2 C 124 H 22 165/85 H 98 07/18/25 21:45 124 H O2 Del Method 07/19/25 07:41 Room Air 07/19/25 07:26 07/19/25 03:57 Room Air 07/19/25 00:16 Room Air 07/18/25 21:45 PG Care Time/CCT Total # of Minutes Spent Total Time Spent with Patient: Total time spent is greater than 50% in coordination of care (as documented) at patient's floor/unit and/or counseling patient: Coding Level of Care Code 87715 SUB INP/OBS CARE 2/35MIN Diagnoses Hypokalemia E87.6 Hyponatremia E87.1 Hypomagnesemia E83.42 Hypocalcemia E83.51 C. difficile colitis A04.72 Neutropenic fever D70.9; R50.81 UTI (urinary tract infection) N39.0 Nausea, vomiting and diarrhea R11.2; R19.7
[2025-07-19] MEDS: SODIUM CHLORIDE 0.9% 500 ML IV ONE (09:56)
--- NOTE | 2025-07-19 12:58 | Palliative Care Consultation ---
Date of Consultation July 19, 2025 Assessment & Plan (1) Cancer related pain: pt c/o chronic but progressively worse generalized abdominal pain radiating to back. She shared that this pain has persisted for months, is severe and limiting her daily activities. She shared that the pain is, at best, 6::10 with current medication regime. She stated that she does not use the medication often because it "only takes the edge off" her pain. She shared that the pain is so severe that she is not wanting to continue cancer treatment and "want to just ". Discussed adjusting her pain medication to offer better pain management. She is agreeable. Increase Oxycodone IR to 10mg PO Q4h PRN Change morphine 4mg IVP to q2h PRN for severe pain Will reassess pain mgmt tomorrow, given severity of pt's chronic pain, may require escalation of short acting opiate and addition of long acting opiate for consistent pain management. (2) Diarrhea: Pt states that she has had chronic diarrhea 2/2 colon cancer treatments but this has increased from 4-5/day to hourly incontinence of liquid stool. She is being treated for CDiff per ID recs. (3) Palliative care by specialist: Met with pt at bedside, no visitors present. Introduced Palliative Medicine and explained our role in advanced care planning, symptom management and navigation through the progression of life limiting disease. Patient was receptive to palliative services for goals of care discussions. Reviewed we are different from hospice, a home health nurse visiting service. (4) Counseling regarding goals of care: Pt stated that she has had no quality of life due to symptom burden and she is not wanting any further cancer directed treatments specifically due to the severe intractable pain. We discussed how she would feel about ongoing cancer treatment if we could offer better symptom management. Pt was unsure, but stated clearly that she does "not want to live like this anymore". She shared that she has been struggling with severe pain and diarrhea which prevent her from living her life. Pt was in pain crisis during my assessment, with 9::10 pain. We discussed revisiting GOC after her pain is more well managed. (5) Advanced directives, counseling/discussion: Discussed importance of Advanced Directive in documenting wishes for both HCPOA and goals of care. Pt states that her spouse is not in agreement with her on goals of care. SHe shared that she does not trust him as her HCPOA because "he does not agree with my wishes about life support" and aggressive interventions. I encouraged pt to consider naming a HCPOA who will serve to be her voice when she is unable to express her wishes. We discussed importance of naming a person who will not make decisions for her, but that has knowledge of her wishes and will support them. Helped Karen understand that Per [place] [id number], in absence of written documentation of patient wishes, pt's proxy for medical decisions would be her unless she tells us otherwise verbally or in writing. Karen shared that she is unclear who she would choose, but she did verbalize that she would not trust either her or her son to honor her wishes. Will revisit GOC and advanced directive discussions when pain is better managed. Plan As above. History of Present Illness Reason for Consultation: goals of care/symptom mgmt Requesting Physician: Tejas Nicole DO Attending Physician: Tejas Nicole DO History of Present Illness Karen is a 65-year-old female PMHx stage IV colon cancer on immunotherapy presenting to ED on 07/14 from [facility] for N/V/D as well as electrolyte abnormalities as identified on outpatient labs. Her evaluation does reveal that she is leukopenic and neutropenic at 0.32 and <0.5 respectively. Electrolyte abnormalities include decreased sodium, potassium, calcium and magnesium. CTAP revealing findings consistent with infectious enteritis or IBS. She was admitted for neutropenia in setting of UTI, enteritis, and electrolyte abnormalities. Allergies Allergy/AdvReac Type Severity Reaction Status Date / Time NSAIDS (Non-Steroidal AdvReac Severe "RIPS UP Verified 07/14/25 19:32 Anti-Inflamma MY STOMACH AND GUTS" prednisone AdvReac Intermediate PER PT Verified 07/14/25 19:32 "EFFECTING THE RETINAS IN MY EYES, PER MD" Home Medications Medication Instructions Recorded Confirmed Type loperamide 2 mg capsule 2 mg PO QID PRN LOOSE STOOLS 07/14/25 07/14/25 History ondansetron 8 mg disintegrating 8 mg translingual Q8H PRN 07/14/25 07/14/25 History tablet NAUSEA/VOMITING oxycodone 5 mg tablet 5 mg PO .Q4-6HR PRN Pain 07/14/25 07/14/25 History prochlorperazine maleate 10 mg 10 mg PO Q6H PRN NAUSEA/VOMITING 07/14/25 07/14/25 History tablet trifluridine 20 mg-tipiracil 8.19 3 tab PO BID 07/14/25 07/14/25 History mg tablet (Lonsurf) Patient History Social History Smoking Status: Current every day smoker Tobacco Type: Cigarettes Second Hand Exposure: No; Do You Dip or Chew Tobacco: No; Tobacco Cessation Education Requested by Patient: No Hx Alcohol Use: No Hx Substance Use: No Communication Ability: Effective Beliefs That Will Affect Care: None Current Living Situation: Spouse Other Information That Helps Us Care for You: No Feels Safe at Home: Yes Safety Concerns: Feels Safe At This Time Assistive Devices: Cane Assistive Devices Comment: shower chair Review of Systems Review of Systems: All systems reviewed & are unremarkable except as noted in HPI & below Gastrointestinal: + abdominal pain, + nausea, + vomiting, + diarrhea/loose stools and + fecal incontinence Physical Exam Constitutional: WD/WN, vitals as above + acute distress and + ill appearing Eyes: + anicteric sclerae Respiratory: normal respiratory effort, lungs clear to auscultation Gastrointestinal (Abdomen): Inspection/Auscultation: + hyperactive bowel sounds Percussion/Palpation: + abdomen tender, + guarding and abdomen soft Psychiatric: Orientation: alert and oriented x 3 Affect: euthymic affect Results & Data Vital Signs (Past 12 Hours) Vital Signs Temp Pulse Pulse Resp BP BP Pulse Ox 07/19/25 11:21 37.3 C 117 H 20 157/89 H 95 07/19/25 07:41 37.4 C 107 H 20 157/94 H 96 07/19/25 07:26 105 H 07/19/25 03:57 36.7 C 110 H 22 162/83 H 97 O2 Del Method 07/19/25 11:21 Room Air 07/19/25 07:41 Room Air 07/19/25 07:26 07/19/25 03:57 Room Air Laboratory Results Abnormal lab results 07/18/25 07/19/25 Range/Units 15:40 05:53 WBC 0.16 L* (4.8-10.8) K/ul RBC 3.69 L (4.20-5.40) M/uL Hgb 10.9 L (12.0-16.0) g/dl Hct 29.2 L (37.0-47.0) % MCV 79.1 L (80.0-100.0) fL MCHC 37.3 H (32.0-36.0) g/dL Plt Count 20 L* (130-400) K/uL Sodium 128 L 128 L (136-145) mmol/L Potassium 2.5 L* D 2.4 L* (3.5-5.1) mmol/L Chloride 96 L 97 L (98-107) mmol/L Creatinine 0.34 L 0.30 L (0.6-1.2) mg/dl BUN/Creatinine Ratio 20.6 H 26.7 H (10-20) Calcium 8.2 L 8.0 L (8.6-10.3) mg/dl Magnesium 1.6 L (1.7-2.4) mg/dl Diagnostic Findings Abdomen/Pelvis CT 07/14/25 17:30 Clinical History: Abdominal pain Technique: Axial computed tomography images were obtained of the abdomen and pelvis after the administration of intravenous contrast. Comparison is made to the prior CT dated 04/08/2025. Findings: The liver is overall of normal size, attenuation, and contour with no sign of cirrhosis or significant fatty infiltration. There is an unchanged 4 mm cyst in the left hepatic lobe. No liver mass lesion is seen. The portal vein is patent. The gallbladder appears unremarkable. No bile duct dilatation is noted. The spleen is of normal size. No focal splenic lesion is evident. The pancreas appears normal with no sign of acute or chronic pancreatitis and no mass lesion noted. The pancreatic duct is of normal caliber. The adrenal glands appear unremarkable. No definite renal or proximal ureteral calculi are seen on this contrast-enhanced study. There is no hydronephrosis or perinephric stranding. No renal mass lesion is identified. There is a small 8 x 3 mm cyst in the mid left kidney. The aorta is of normal caliber. No abdominal adenopathy is seen. There is a small epigastric hernia containing fat The stomach appears normal. There is no sign of small bowel obstruction. There is new wall thickening of the distal jejunum and ileum with adjacent mild mesenteric edema. No free intraperitoneal fluid or air is identified. Anastomotic sutures are again seen of the sigmoid colon. There is a 4.1 x 3.2 cm low attenuation lesion abutting the mid sigmoid colon, previously 3.3 x 2.7 cm. Posterosuperior to this, there is a 3.7 x 2.9 cm low attenuation lesion, previously 3.5 x 2.5 centimeters. Superior to this, there is a 2.6 x 2.3 cm lesion that previously measured 2 x 1.9 cm. No distal ureteral or bladder calculi are seen. No bladder mass lesion is evident. The iliac arteries are of normal caliber. The uterus has been removed The lungs bases appear clear. Lumbar degenerative disc disease is seen. No fracture is identified. No focal osseous lesion is seen Impression: 1. New small bowel wall thickening, consistent with infectious enteritis or inflammatory bowel disease 2. Interval increase in size of 3 low-attenuation lesions in the left pelvis, concerning for worsening metastatic disease 3. Small epigastric hernia containing only fat 4. Small left renal cyst ACT 112: Positive. There are findings on this exam that require communication between the performing entity and the patient following Patient Test Result Information Act ([place] ACT 112) guidelines. Electronically signed by Romel Alonso 07-14-2025 7:16 PM Chest X-Ray 07/14/25 17:30 Chest radiograph, one view History: Sepsis Comparison: None Findings: Single AP view of the chest performed. No focal consolidation or pleural effusion. No pneumothorax. The cardiomediastinal silhouette is within normal limits. Normal pulmonary vascularity. No evidence for lymphadenopathy. No visualized bony or soft tissue abnormality. Impression: Normal chest radiograph Electronically signed by Etienne Fitzgerald 07-14-2025 6:26 PM Medications Administered Current Inpatient Medications Acetaminophen (Acetaminophen 325 Mg Tab) 650 mg PO Q4H PRN PRN Reason: Pain or Fever Stop: 08/13/25 21:51 Last Admin: 07/18/25 19:55 Dose: 650 mg Al Hydrox/Mg Hydrox/Simethicone (Aluminum/Magnesium Susp 30 Ml Udc) 15 ml PO Q4H PRN PRN Reason: Dyspepsia Stop: 08/13/25 21:51 Fidaxomicin (Fidaxomicin 200 Mg Tab) 200 mg PO BID ESTELLE Stop: 07/25/25 08:59 Last Admin: 07/19/25 10:19 Dose: 200 mg Cefepime HCl (Maxipime 2000mg) 2,000 mg in 20 mls @ 5 mls/min IV Q8H ESTELLE; Protocol Stop: 07/20/25 02:59 Last Admin: 07/19/25 11:11 Dose: 5 mls/min Potassium Chloride 40 meq/ (Sodium Chloride) 1,020 mls @ 80 mls/hr IV .[id number] ESTELLE Stop: 07/21/25 15:29 Last Admin: 07/19/25 12:24 Dose: 80 mls/hr Melatonin (Melatonin 3 Mg Tab) 3 mg PO HS PRN PRN Reason: Sleep Stop: 08/13/25 21:51 Morphine Sulfate (Morphine Sulfate 4 Mg/Ml 1 Ml Carp\\Vial) 4 mg IV Q2H PRN PRN Reason: Severe Pain (Scale 7, 8, 9,10) Stop: 08/01/25 16:01 Last Admin: 07/19/25 13:58 Dose: 4 mg Ondansetron HCl (Ondansetron 4 Mg Od Tab) 4 mg SL Q8H PRN PRN Reason: NAUSEA/VOMITING Stop: 08/13/25 21:53 Ondansetron HCl (Ondansetron Inj 2 Mg/Ml 2 Ml Vial) 4 mg IV Q6H PRN PRN Reason: Nausea Stop: 08/13/25 21:51 Last Admin: 07/18/25 10:13 Dose: 4 mg Oxycodone HCl (Oxycodone Hcl Ir 5 Mg Tab (Immediate Release)) 10 mg PO Q4H PRN PRN Reason: Pain Stop: 07/29/25 09:20 Prochlorperazine (Prochlorperazine Maleate 10 Mg Tab) 10 mg PO Q6H PRN PRN Reason: NAUSEA/VOMITING Stop: 08/13/25 21:51 PG Care Time/CCT Total # of Minutes Spent Total Time Spent with Patient: Total time spent is greater than 50% in coordination of care (as documented) at patient's floor/unit and/or counseling patient: [place] [address] IN/OBS CONSULT LVL 5,80M Patient Type New History Expanded Problem Focused Exam Expanded Problem Focused Medical Decision Making Moderate Complexity Diagnoses Cancer related pain G89.3 Diarrhea R19.7 Palliative care by specialist Z51.5 Counseling regarding goals of care Z71.89 Advanced directives, counseling/discussion Z71.89
[2025-07-19] MEDS: MoRPHine SULFATE 4 MG/ML 1 ML CARP\\VIAL IV PRN (13:58)
--- NOTE | 2025-07-19 15:32 | Hospitalist Progress Note ---
Date of Service July 19, 2025 Assessment & Plan (1) Nausea, vomiting and diarrhea: Plan: -c.diff B + with symptoms -Fidaxomicin IV Q12 -ID consult appreciated -She still has ongoing diarrhea. (2) UTI (urinary tract infection): Plan: -on cefepime -urine culture negative so far (3) Neutropenia: Plan: -colon CA -on lonsurf -WBC 0.17 -heme-onc consulted (4) Hyponatremia: Plan: -on NS IVF -f/u BMP (5) Hypomagnesemia: Plan: -repleated (6) Hypokalemia: Plan: -K+ 2.0 -repeated -Nephrology consult appreciated -IVF change to at KCl (7) Hypocalcemia: Plan: -calcium gluconate given (8) Elevated troponin: Plan: EKG sinus tachycardia @ 117 bpm, no ischemic changes - Likely 2/2 demand (9) Colon cancer: Plan: - 5 years -on immunotherapy -pt not wanting to move forward with treatment however not willing to give up -palliative care consulted 07/18 spoke with palliative on 07/19/2025, first optimize pain control prior to any plan for care discussion. Plan 65-year-old female PMHx stage IV colon cancer on immunotherapy presenting [facility] for N/V/D as well as electrolyte abnormalities as identified on outpatient labs. Her evaluation does reveal that she is leukopenic and neutropenic at 0.32 and <0.5 respectively. Electrolyte abnormalities include decreased sodium, potassium, calcium and magnesium. Slightly elevated bilirubin with decreased AST, elevated alkaline phosphatase. Procalcitonin minimally elevated with normal lactate and presence of UTI. CTAP revealing findings consistent with infectious enteritis or IBS. Admission for neutropenia in setting of UTI, enteritis, and electrolyte abnormalities. she was noted to has C. difficile infection. Admission and Anticipated Discharge Date Admission Date: July 14, 2025 Subjective she has ongoing diarrhea 5-6 times per day also has ongoing abdominal pain palliative care following. plan is to optimize pain control prior to any goal of care discussion according to the patient, she does not want her and her son to involved in medical decision making Physical Exam Physical Exam: VITALS: Reviewed. WEIGHT/BMI reviewed. PSYCH: Good Judgment. AOx3. Normal memory, mood, and affect. HEENT -Head: NC/AT; -Eyes: PERRL, EOMI. No discharge or redn ess; NECK: Supple, with no masses. CV: RRR, no m/r/g. LUNGS: CTAB, no w/r/c. ABD: Soft, NT/ND, NBS, no masses or organomegaly. non-tender to palpation MSK: No deformities, Normal gait. EXT: No clubbing, cyanosis, or edema. NEURO: Ambulating with no limitations. Normal muscle strength and tone. No focal deficits. Results & Data Results & Data Vital Signs (Past 12 Hours) Vital Signs Temp Pulse Pulse Resp BP BP Pulse Ox 07/19/25 11:21 37.3 C 117 H 20 157/89 H 95 07/19/25 07:41 37.4 C 107 H 20 157/94 H 96 07/19/25 07:26 105 H 07/19/25 03:57 36.7 C 110 H 22 162/83 H 97 O2 Del Method 07/19/25 11:21 Room Air 07/19/25 07:41 Room Air 07/19/25 07:26 07/19/25 03:57 Room Air Laboratory Results Laboratory Results - last 72 hr 07/17/25 07/18/25 07/18/25 06:24 08:19 15:40 WBC 0.24 L* 0.13 L* RBC 3.41 L 3.61 L Hgb 10.0 L 10.4 L Hct 27.9 L 28.9 L MCV 81.8 80.1 MCH 29.3 28.8 MCHC 35.8 36.0 RDW Std Deviation 39.1 38.4 RDW Coeff of Mark 13.1 13.2 Plt Count 25 L* 19 L* MPV 9.2 L 9.7 Sodium 128 L 128 L 128 L Potassium 2.3 L* 2.0 L* 2.5 L* D Chloride 94 L 95 L 96 L Carbon Dioxide 24 21 21 Anion Gap 10 12 H 11 BUN 8 8 7 Creatinine 0.38 L 0.35 L 0.34 L Est Cr Clr Drug Dosing 125.6 135.9 139.9 eGFR 109.76 111.96 112.74 BUN/Creatinine Ratio 21.1 H 22.9 H 20.6 H Glucose 100 H 97 98 Calcium 7.8 L 7.8 L 8.2 L Magnesium 1.7 1.6 L 07/19/25 05:53 WBC 0.16 L* RBC 3.69 L Hgb 10.9 L Hct 29.2 L MCV 79.1 L MCH 29.5 MCHC 37.3 H RDW Std Deviation 37.4 RDW Coeff of Mark 13.1 Plt Count 20 L* MPV 11.1 Sodium 128 L Potassium 2.4 L* Chloride 97 L Carbon Dioxide 21 Anion Gap 10 BUN 8 Creatinine 0.30 L Est Cr Clr Drug Dosing 162.0 eGFR 116.19 BUN/Creatinine Ratio 26.7 H Glucose 95 Calcium 8.0 L Magnesium 1.6 L Medications Administered Current Inpatient Medications Acetaminophen (Acetaminophen 325 Mg Tab) 650 mg PO Q4H PRN PRN Reason: Pain or Fever Stop: 08/13/25 21:51 Last Admin: 07/18/25 19:55 Dose: 650 mg Al Hydrox/Mg Hydrox/Simethicone (Aluminum/Magnesium Susp 30 Ml Udc) 15 ml PO Q4H PRN PRN Reason: Dyspepsia Stop: 08/13/25 21:51 Fidaxomicin (Fidaxomicin 200 Mg Tab) 200 mg PO BID [facility] Stop: 07/25/25 08:59 Last Admin: 07/19/25 10:19 Dose: 200 mg Cefepime HCl (Maxipime 2000mg) 2,000 mg in 20 mls @ 5 mls/min IV Q8H [facility]; Protocol Stop: 07/20/25 02:59 Last Admin: 07/19/25 11:11 Dose: 5 mls/min Potassium Chloride 40 meq/ (Sodium Chloride) 1,020 mls @ 80 mls/hr IV .[id number] [facility] Stop: 07/21/25 15:29 Last Admin: 07/19/25 12:24 Dose: 80 mls/hr Sodium Chloride (Nss) 500 mls @ 80 mls/hr IV .Q6H15M ONE Stop: 07/19/25 16:01 Last Infusion: 07/19/25 12:31 Dose: Infused Melatonin (Melatonin 3 Mg Tab) 3 mg PO HS PRN PRN Reason: Sleep Stop: 08/13/25 21:51 Morphine Sulfate (Morphine Sulfate 4 Mg/Ml 1 Ml Carp\Vial) 4 mg IV Q2H PRN PRN Reason: Severe Pain (Scale 7, 8, 9,10) Stop: 08/01/25 16:01 Last Admin: 07/19/25 13:58 Dose: 4 mg Ondansetron HCl (Ondansetron 4 Mg Od Tab) 4 mg SL Q8H PRN PRN Reason: NAUSEA/VOMITING Stop: 08/13/25 21:53 Ondansetron HCl (Ondansetron Inj 2 Mg/Ml 2 Ml Vial) 4 mg IV Q6H PRN PRN Reason: Nausea Stop: 08/13/25 21:51 Last Admin: 07/18/25 10:13 Dose: 4 mg Oxycodone HCl (Oxycodone Hcl Ir 5 Mg Tab (Immediate Release)) 10 mg PO Q4H PRN PRN Reason: Pain Stop: 07/29/25 09:20 Prochlorperazine (Prochlorperazine Maleate 10 Mg Tab) 10 mg PO Q6H PRN PRN Reason: NAUSEA/VOMITING Stop: 08/13/25 21:51 PG Care Time/CCT Total # of Minutes Spent Total Time Spent with Patient: Total time spent is greater than 50% in coordination of care (as documented) at patient's floor/unit and/or counseling patient: Coding Level of Care Code 52072 SUB INP/OBS CARE 11/07MIN Diagnoses Nausea, vomiting and diarrhea R11.2; R19.7 UTI (urinary tract infection) N39.0 Neutropenia D70.9 Hyponatremia E87.1 Hypomagnesemia E83.42 Hypokalemia E87.6 Hypocalcemia E83.51 Elevated troponin R79.89 Colon cancer C18.9 Time Spent (min) 25
--- NOTE | 2025-07-19 15:44 | Infectious Disease Progress Nt ---
Date of Service July 19, 2025 Assessment & Plan (1) Neutropenic fever: (2) C. difficile colitis: Plan Problems: #Neutropenic fever #Diarrhea #N/V #Colon cancer on Lonsurf Micro: 07/14 Stool pathogen panel: positive C diff gene, negative C diff toxin 07/14 BCx x2: NGTD 07/14 UCx: three types of organisms, all high counts probable skin richard Abx: Cefepime 07/14 - present Fidaxomicin 07/15 - present 65 yo F with stage IV colon cancer on immunotherapy who presented from [facility] on 07/[facility]25 for N/V/D, outpatient lab abnormalities, found to have neutropenic fever and likely C diff. 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 Reports >5 episodes of watery diarrhea a day. Denies fevers or chills. Denies dysuria or urinating more frequently than usual. She reports that in the last few weeks, her oncologist prescribed her an antibiotic for UTI (she does not recall the name of the antibiotic). On presentation, pt was afebrile, HR 123, BP 131/78. Became febrile to 38.2 overnight. Labs showed WBC 0.32, ANC < 500, Hb 13.6, plt 106, Cr 0.75. UA with 6-[address] A/P with IV contrast showed new small bowel wall thickening, consistent with infectious enteritis or inflammatory bowel disease. Pt was started on cefepime. Stool pathogen panel came back C diff toxin gene positive, toxin negative. BCx NGTD. UCx with mixed probable skin richard. Pt denies recent travel or sick contacts. Endorses some rhinorrhea, shortness of breath. Also reports feeling dizzy and weak. Denies a history of prior C diff. Discussion: C diff toxin gene positive, toxin negative--could indicate colonization, but in the setting of recent antibiotic exposure and frequent diarrhea, will treat as C diff. 07/19 Febrile 07/18- t 38.1 Remains neutropenic WBC 0.16, platelets 28 Ongoing diarrhea palliative care following for goals of care Recommendations: - Continue fidaxomicin 200 mg PO BID to complete a 10 day course - Continue cefepime for now given neutropenic fever--last fever< 24 hours ago - [facility] discussion ongoing. Zita South MD, MPH Infectious Disease [facility], ID Division Call [phone] with questions Admission and Anticipated Discharge Date Admission Date: July 14, 2025 Subjective This patient recommendation is based on a telemedicine consult request which was completed asynchronously through chart review and information provided by the primary physician. The patient was not seen or examined today. The evaluation is consultative in nature and all patient care and treatment decisions can either be accepted or rejected by the patient's primary hospital-based treating physician using their own independent medical judgment for their patient. Time Spent Reviewing Chart: 11 - 20 minutes Febrile 07/18- t 38.1 Remains neutropenic WBC 0.16, platelets 28 Ongoing diarrhea palliative care following for goals of care Results & Data Vital Signs (Past 12 Hours) Vital Signs Temp Pulse Pulse Resp BP BP Pulse Ox 07/19/25 11:21 37.3 C 117 H 20 157/89 H 95 07/19/25 07:41 37.4 C 107 H 20 157/94 H 96 07/19/25 07:26 105 H 07/19/25 03:57 36.7 C 110 H 22 162/83 H 97 O2 Del Method 07/19/25 11:21 Room Air 07/19/25 07:41 Room Air 07/19/25 07:26 07/19/25 03:57 Room Air Laboratory Results Laboratory Results - last 72 hr 07/17/25 07/18/25 07/18/25 06:24 08:19 15:40 WBC 0.24 L* 0.13 L* RBC 3.41 L 3.61 L Hgb 10.0 L 10.4 L Hct 27.9 L 28.9 L MCV 81.8 80.1 MCH 29.3 28.8 MCHC 35.8 36.0 RDW Std Deviation 39.1 38.4 RDW Coeff of Mark 13.1 13.2 Plt Count 25 L* 19 L* MPV 9.2 L 9.7 Sodium 128 L 128 L 128 L Potassium 2.3 L* 2.0 L* 2.5 L* D Chloride 94 L 95 L 96 L Carbon Dioxide 24 21 21 Anion Gap 10 12 H 11 BUN 8 8 7 Creatinine 0.38 L 0.35 L 0.34 L Est Cr Clr Drug Dosing 125.6 135.9 139.9 eGFR 109.76 111.96 112.74 BUN/Creatinine Ratio 21.1 H 22.9 H 20.6 H Glucose 100 H 97 98 Calcium 7.8 L 7.8 L 8.2 L Magnesium 1.7 1.6 L 07/19/25 05:53 WBC 0.16 L* RBC 3.69 L Hgb 10.9 L Hct 29.2 L MCV 79.1 L MCH 29.5 MCHC 37.3 H RDW Std Deviation 37.4 RDW Coeff of Mark 13.1 Plt Count 20 L* MPV 11.1 Sodium 128 L Potassium 2.4 L* Chloride 97 L Carbon Dioxide 21 Anion Gap 10 BUN 8 Creatinine 0.30 L Est Cr Clr Drug Dosing 162.0 eGFR 116.19 BUN/Creatinine Ratio 26.7 H Glucose 95 Calcium 8.0 L Magnesium 1.6 L
[2025-07-20 06:37] LABS: Anion Gap 13.0 (3-11); Blood Urea Nitrogen 9.0 mg/dl (6-23); Calcium 8.2 mg/dl (8.6-10.3); Carbon Dioxide 20.0 mmol/L (21-32); Chloride 96.0 mmol/L (98-107); Creatinine Clr Calc Pharmacy 155.1 ml/min; Glucose 87.0 mg/dl (70-99(Fasting)); Magnesium 1.4 mg/dl (1.7-2.4); Potassium 2.4 mmol/L (3.5-5.1); Sodium 129.0 mmol/L (136-145)
[2025-07-20 06:38] LABS: Hematocrit (blood only) 29.4 % (37.0-47.0); Hemoglobin 11.0 g/dl (12.0-16.0); Mean Corpuscular Hemoglobin 29.3 pg (25.0-34.0); Mean Corpuscular Volume 78.2 fL (80.0-100.0); Platelet Count 22 K/uL (130-400); RDW Standard Deviation 37.7 fL (36.4-46.3); Red Blood Count 3.76 M/uL (4.20-5.40)
[2025-07-20 06:42] LABS: White Blood Count 0.22 K/ul (4.8-10.8)
--- NOTE | 2025-07-20 09:59 | Nephrology Progress Note ---
Date of Service July 20, 2025 Assessment & Plan (1) Hypokalemia: (2) Hyponatremia: (3) Hypomagnesemia: (4) Hypocalcemia: (5) C. difficile colitis: (6) Neutropenic fever: (7) UTI (urinary tract infection): (8) Nausea, vomiting and diarrhea: Plan 65-year-old female with stage IV metastatic colon cancer, on chemo and immunotherapy, admitted to the hospital with nausea, vomiting, diarrhea for about 2 weeks and found to have critical electrolyte abnormality. Potassium s taying critically low despite getting IV potassium replacement. K 2.0, Sodium staying low at 128. Serum calcium and magnesium slightly improved. Blood pressure has been variable. Continues to have critical hypokalemia on IV KCL as could not tolerate po with nausea. --Continue on IV replacement of electrolyte as she continues to have significant nausea and vomiting and not able to take po. --IV normal saline to normal saline plus KCl 40 mEq/L --If she is able to take orally and blood pressure tolerates, consider starting on spironolactone --waiting on oncology and Palliative care evaluation to discuss goals of care as she repeatedly expressed that she does not want to continue like this. Will sign off, please contact if further assistance needed. Admission and Anticipated Discharge Date Admission Date: July 14, 2025 Subjective Visited [facility] this morning. She was lying in bed, her eyes closed but clearly was in pain and did not open her eye or communicated. Blood pressure well- controlled. Labs reviewed, potassium remained low at 2.4, sodium 129 and magnesium was 1.4. Has been getting IV potassium supplement. P.o. intake remains poor. Review of Systems Review of Systems: Detailed review of system was not done as show syncope and did not feel like heart pain. Physical Exam Physical Exam: Detailed exam was not done. Results & Data Vital Signs (Past 12 Hours) Vital Signs Temp Pulse Pulse Resp BP BP Pulse Ox 07/20/25 08:37 36.6 C 107 H 16 124/76 98 07/20/25 03:34 36.9 C 113 H 18 146/86 H 98 07/19/25 22:45 36.9 C 115 H 14 146/87 H 97 07/19/25 21:57 115 H O2 Del Method 07/20/25 08:37 Room Air 07/20/25 03:34 Room Air 07/19/25 22:45 Room Air 07/19/25 21:57 PG Care Time/CCT Total # of Minutes Spent Total Time Spent with Patient: Total time spent is greater than 50% in coordination of care (as documented) at patient's floor/unit and/or counseling patient: Coding Level of Care Code 57408 SUB INP/OBS CARE 11/07MIN Diagnoses Hypokalemia E87.6 Hyponatremia E87.1 Hypomagnesemia E83.42 Hypocalcemia E83.51 C. difficile colitis A04.72 Neutropenic fever D70.9; R50.81 UTI (urinary tract infection) N39.0 Nausea, vomiting and diarrhea R11.2; R19.7
--- NOTE | 2025-07-20 11:10 | Infectious Disease Progress Nt ---
Date of Service July 20, 2025 Assessment & Plan (1) Neutropenic fever: (2) C. difficile colitis: Plan Problems: #Neutropenic fever #Diarrhea #N/V #Colon cancer on Lonsurf # electrolyte abnormalities Micro: 07/14 Stool pathogen panel: positive C diff gene, negative C diff toxin 07/14 BCx x2: NGTD 07/14 UCx: three types of organisms, all high counts probable skin richard Abx: Cefepime 07/14 - 07/20 Fidaxomicin 07/15 - 07/20 IV flagyl 07/20- current PO vanco 07/20-current 65 yo F with stage IV colon cancer on immunotherapy who presented from [facility] on 07/14/25 for N/V/D, outpatient lab abnormalities, found to have neutropenic fever and likely C diff. Her N/V/D began ~1 week [employer], but worsened ~3 days [employer] and she has been unable to keep anything down. Reports >5 episodes of watery diarrhea a day. Denies fevers or chills. Denies dysuria or urinating more frequently than usual. She reports that in the last few weeks, her oncologist prescribed her an antibiotic for UTI (she does not recall the name of the antibiotic). On presentation, pt was afebrile, HR 123, BP 131/78. Became febrile to 38.2 the am of 07/15 Labs showed WBC 0.32, ANC < 500, Hb 13.6, plt 106, Cr 0.75. UA with 6-[address] A/P with IV contrast showed new small bowel wall thickening, consistent with infectious enteritis or inflammatory bowel disease. Pt was started on cefepime. Stool pathogen panel came back C diff toxin gene positive, toxin negative. BCx NGTD. UCx with mixed probable skin richard. Pt denies recent travel or sick contacts. Endorses some rhinorrhea, shortness of breath. Also reports feeling dizzy and weak. Denies a history of prior C diff. Discussion: C diff toxin gene positive, toxin negative--could indicate colonization, but in the setting of recent antibiotic exposure and frequent diarrhea, will treat as C diff. 07/19 Febrile 07/18- t 38.1 Remains neutropenic WBC 0.16, platelets 28 Ongoing diarrhea. Palliative care following for goals of care 07/20 Afebrile for > 24 hrs . continued diarrhea on fidaxomicin. + N/V. Team started IV flagyl. WBC 0.22, no diff. Recommendations: - Ok with team starting IV flagyl given continued diarrhea. - Dced fidaxomicin as no evidence for combo Cdiff therapy with fidoxamicin -Started PO vancomycin 125 mg po q6hrs as IV flagyl was started ( no evidence of fulminant cdiff , but not improving on fidaxomicin) -Discontinued cefepime as she has been afebrile for > 24 hours. She remains neutropenic. -GOC discussion ongoing. Communicated recs to hospitalist Will follow Zita South MD, MPH Infectious Disease [facility] Call [phone] with questions Admission and Anticipated Discharge Date Admission Date: July 14, 2025 Subjective Subsequent visit was provided via telemedicine using two-way real-time interactive telecommunication between the patient and the telemedicine provider. For the duration of the visit, the provider was performing the assessment from a different facility than the patient. This includesuse of bluetooth stethoscope forauscultationperformed by the telepresenter that the telemedicine provider can hear if described in the physical exam. [facility] [employer] [facility] contact information: Please call [facility] Center [phone]. (Phone Number For Physician Use Only) After establishing a telemedicine visit, patient was: Patient was verified with two unique identifiers and Gave permission to continue telehealth session Time Spent with Patient: Subsequent => 25 min Continues to have diarrhea. Primary team started IV falgyl She has abdominal TTP on exam Physical Exam Physical Exam: GEN: chronically ill appearing and appears uncomfortable RESP: No increased work of breathing NEURO: Alert and oriented times 3, but sloe to respond 2/2 discomfort ABD- soft- mild TTP Results & Data Vital Signs (Past 12 Hours) Vital Signs Temp Pulse Resp BP Pulse Ox O2 Del Method 07/20/25 08:37 36.6 C 107 H 16 124/76 98 Room Air 07/20/25 03:34 36.9 C 113 H 18 146/86 H 98 Room Air Laboratory Results Short CBC 07/20/25 Range/Units 05:48 WBC 0.22 L* (4.8-10.8) K/ul Hgb 11.0 L (12.0-16.0) g/dl Hct 29.4 L (37.0-47.0) % Plt Count 22 L* (130-400) K/uL BMP 07/20/25 05:48 Sodium 129 L Potassium 2.4 L* Chloride 96 L Carbon Dioxide 20 L BUN 9 Creatinine 0.30 L Glucose 87 Calcium 8.2 L Medications Administered Home Medications Medication Instructions Recorded Confirmed Last Taken loperamide 2 mg capsule 2 mg PO QID PRN LOOSE STOOLS 07/14/25 07/14/25 Unknown ondansetron 8 mg disintegrating 8 mg translingual Q8H PRN 07/14/25 07/14/25 Unknown tablet NAUSEA/VOMITING oxycodone 5 mg tablet 5 mg PO .Q4-6HR PRN Pain 07/14/25 07/14/25 Unknown prochlorperazine maleate 10 mg 10 mg PO Q6H PRN NAUSEA/VOMITING 07/14/25 07/14/25 Unknown tablet trifluridine 20 mg-tipiracil 8.19 3 tab PO BID 07/14/25 07/14/25 07/11/25 mg tablet (Lonsurf) Active Medications Generic Name Dose Route Start Last Admin Trade Name Freq PRN Reason Stop Dose Admin Acetaminophen 650 mg 07/14/25 21:52 07/18/25 19:55 Acetaminophen 325 Mg Tab PO 08/13/25 21:51 650 mg Q4H PRN Administration Pain or Fever Potassium Chloride 40 meq/ 1,020 mls @ 80 mls/hr 07/18/25 15:30 07/20/25 01:15 Sodium Chloride IV 07/21/25 15:29 80 mls/hr .[id number] ESTLELE Administration Morphine Sulfate 4 mg 07/19/25 12:55 07/20/25 07:13 Morphine Sulfate 4 Mg/Ml 1 Ml Carp\Vial IV 08/01/25 16:01 4 mg Q2H PRN Administration Severe Pain (Scale 7, 8, 9,10) Ondansetron HCl 4 mg 07/14/25 21:52 07/18/25 10:13 Ondansetron Inj 2 Mg/Ml 2 Ml Vial IV 08/13/25 21:51 4 mg Q6H PRN Administration Nausea Oxycodone HCl 10 mg 07/19/25 12:55 07/20/25 03:27 Oxycodone Hcl Ir 5 Mg Tab (Immediate Release) PO 07/29/25 09:20 10 mg Q4H PRN Administration Pain
[2025-07-20] MEDS ORDERED: MAG SULFATE 50% 1GM/2ML VIAL IV ONE (12:30)
--- NOTE | 2025-07-20 12:58 | Hospitalist Progress Note ---
Date of Service July 20, 2025 Assessment & Plan (1) Nausea, vomiting and diarrhea: Plan: -c.diff B + with symptoms vancomycin and IV flagyl need ID f/u addressing low magnesium and low potassium (2) UTI (urinary tract infection): Plan: -on cefepime -urine culture negative so far (3) Neutropenia: Plan: -colon CA -on lonsurf -WBC 0.17 -heme-onc consulted she's no longer want to receive chemotherapy she's want her to visit her and decide about whether to switch to hospice care (4) Hyponatremia: Plan: -on NS IVF -f/u BMP (5) Hypomagnesemia: Plan: -repleated still low at 1.4 giving her IV magnesium 2g in the afternoon and then antoerh 2g in the evening (6) Hypokalemia: Plan: -K+ 2.0 -repeated -Nephrology consult appreciated -IVF change to at KCl (7) Hypocalcemia: Plan: -calcium gluconate given (8) Elevated troponin: Plan: EKG sinus tachycardia @ 117 bpm, no ischemic changes - Likely 2/2 demand (9) Colon cancer: Plan: - 5 years -on immunotherapy -pt not wanting to move forward with treatment however not willing to give up -palliative care consulted 07/18 Ketan Vaughan spoke with , discussed the poor prognosis will be in the hospital on 07/21/2025 9am to discuss plan of care Plan 65-year-old female PMHx stage IV colon cancer on immunotherapy [facility] for N/V/D as well as electrolyte abnormalities as identified on outpatient labs. Her evaluation does reveal that she is leukopenic and neutropenic at 0.32 and <0.5 respectively. Electrolyte abnormalities include decreased sodium, potassium, calcium and magnesium. Slightly elevated bilirubin with decreased AST, elevated alkaline phosphatase. Procalcitonin minimally elevated with normal lactate and presence of UTI. CTAP revealing findings consistent with infectious enteritis or IBS. Admission for neutropenia in setting of UTI, enteritis, and electrolyte abnormalities. she was noted to has C. difficile infection. she's has low potassium of 2.5 and low magnesium of 1.4 Admission and Anticipated Discharge Date Admission Date: July 14, 2025 Subjective she's has hypokalemia, hyomagnesemia spoke with Id, agreed with switching C. difficile treatment to IV flagyl and vancomycin palliative care spoke with patient, she's in poor health and she's no longer want to received treatment for stage 4 colon cancer she has a and a son Physical Exam Physical Exam: VITALS: Reviewed. WEIGHT/BMI reviewed. GEN: Healthy appearing, well-developed, NAD. -Head: NC/AT; -Mouth and throat: MMM. Normal gums, muc li, palate,. Good dentition. NECK: Supple, with no masses. CV: RRR, no m/r/g. LUNGS: CTAB, no w/r/c. ABD: Soft, NT/ND, NBS, no masses or organomegaly. MSK: No deformities, Normal gait. EXT: No clubbing, cyanosis, or edema. NEURO: AAox3; slow mentation Results & Data Results & Data Vital Signs (Past 12 Hours) Vital Signs Temp Pulse Resp BP Pulse Ox O2 Del Method 07/20/25 08:37 36.6 C 107 H 16 124/76 98 Room Air 07/20/25 03:34 36.9 C 113 H 18 146/86 H 98 Room Air Laboratory Results Laboratory Results - last 72 hr 07/18/25 07/18/25 07/19/25 08:19 15:40 05:53 WBC 0.13 L* 0.16 L* RBC 3.61 L 3.69 L Hgb 10.4 L 10.9 L Hct 28.9 L 29.2 L MCV 80.1 79.1 L MCH 28.8 29.5 MCHC 36.0 37.3 H RDW Std Deviation 38.4 37.4 RDW Coeff of Mark 13.2 13.1 Plt Count 19 L* 20 L* MPV 9.7 11.1 Sodium 128 L 128 L 128 L Potassium 2.0 L* 2.5 L* D 2.4 L* Chloride 95 L 96 L 97 L Carbon Dioxide 21 21 21 Anion Gap 12 H 11 10 BUN 8 7 8 Creatinine 0.35 L 0.34 L 0.30 L Est Cr Clr Drug Dosing 135.9 139.9 162.0 eGFR 111.96 112.74 116.19 BUN/Creatinine Ratio 22.9 H 20.6 H 26.7 H Glucose 97 98 95 Calcium 7.8 L 8.2 L 8.0 L Magnesium 1.6 L 1.6 L 07/20/25 05:48 WBC 0.22 L* RBC 3.76 L Hgb 11.0 L Hct 29.4 L MCV 78.2 L MCH 29.3 MCHC 37.4 H RDW Std Deviation 37.7 RDW Coeff of Mark 13.2 Plt Count 22 L* MPV 10.3 Sodium 129 L Potassium 2.4 L* Chloride 96 L Carbon Dioxide 20 L Anion Gap 13 H BUN 9 Creatinine 0.30 L Est Cr Clr Drug Dosing 155.1 eGFR 116.19 BUN/Creatinine Ratio 30.0 H Glucose 87 Calcium 8.2 L Magnesium 1.4 L PG Care Time/CCT Total # of Minutes Spent Total Time Spent with Patient: Total time spent is greater than 50% in coordination of care (as documented) at patient's floor/unit and/or counseling patient: Coding Level of Care Code 63931 SUB INP/OBS CARE 11/07MIN Diagnoses Nausea, vomiting and diarrhea R11.2; R19.7 UTI (urinary tract infection) N39.0 Neutropenia D70.9 Hyponatremia E87.1 Hypomagnesemia E83.42 Hypokalemia E87.6 Hypocalcemia E83.51 Elevated troponin R79.89 Colon cancer C18.9 Time Spent (min) 25
--- NOTE | 2025-07-20 13:22 | Palliative Care Progress Note ---
Date of Service July 20, 2025 Assessment & Plan (1) Cancer related pain: Plan: 07/20, today: Pt states pain well managed., no changes in meds Continue Oxycodone IR to 10mg PO Q4h PRN Continue morphine 4mg IVP to q2h PRN for severe pain 07/19:pt c/o chronic but progressively worse generalized abdominal pain radiating to back. She shared that this pain has persisted for months, is severe and limiting her daily activities. She shared that the pain is, at best, 6::10 with current medication regime. She stated that she does not use the medication often because it "only takes the edge off" her pain. She shared that the pain is so severe that she is not wanting to continue cancer treatment and "want to just ". Discussed adjusting her pain medication to offer better pain management. She is agreeable. Increase Oxycodone IR to 10mg PO Q4h PRN Change morphine 4mg IVP to q2h PRN for severe pain (2) Diarrhea: Plan: Pt states that she has had chronic diarrhea 2/2 colon cancer treatments but this has increased from 4-5/day to hourly incontinence of liquid stool. She is being treated for CDiff per ID recs. (3) Palliative care by specialist: Plan: Met with pt at bedside, no visitors present. Palliative care will continue to follow for ongoing symptom mgmt and patient/family support. (4) Counseling regarding goals of care: Plan: 07/20: Met with pt to discuss her values and GOC for 30 minutes at bedside. Pt no longer in pain crisis and appears rested, lying in bed in NAD. SHe shared that her pain is well controlled and she actually slept a bit better last night. Pt reinforced that she is not wanting any further cancer directed treatment nor any life prolonging treatments. She shared concern that Aidan, her , may argue with this. She shared that he battles anxiety and he is not accepting of how sick she is. She shared that she had asked Dr Zhao to call him and help him understand that she is only getting sicker, but she is not sure if he was able to reach Aidan. She requested that I call Aidan and help him understand and accept her choices. Given pt's request for comfort directed care, discussed code status and helped her understand that CPR is only done after a person has and involves uncomfortable and invasive procedures that, if successful. have high risk of multiple complications including but not limited to rib fractures, pneumo/hemothorax, ELENA, ventilator dependence, anoxic brain injury, and residential/permanent cognitive and functional deficits. Karen shared that she never wishes to be on a ventilator, and requests DNR/DNI. We discussed transition to [facility] and likely prognosis of days to weeks if we stop repleting her electrolytes. We discussed that she may not be stable enough to leave the hospital and discussed criteria for GIP hospice. Pt responded "that w ould be good" and expressed that she does not wish to prolong her suffering, but is hopeful that Aidan can be brought to accept that she is dying prior to changing to [facility]. 07/19: Pt stated that she has had no quality of life due to symptom burden and she is not wanting any further cancer directed treatments specifically due to the severe intractable pain. We discussed how she would feel about ongoing cancer treatment if we could offer better symptom management. Pt was unsure, but stated clearly that she does "not want to live like this anymore". She shared that she has been struggling with severe pain and diarrhea which prevent her from living her life. Pt was in pain crisis during my assessment, with 9::10 pain. We discussed revisiting GOC after her pain is more well managed. (5) Advanced directives, counseling/discussion: Plan: 07/20: Reinforced prior discussion, pt shared that she does not have any other person she would want to name as HCPOA. She shared concern that her spouse does not agree with her wishes for no more aggressive measures. We discussed bringing him into discussion to allow him to hear the same information about her health and ask questions to help him see her perspective. SHe shared that he will not be visiting today but encouraged that I set time for meeting to discuss AD/GOC. 07/19: Discussed importance of Advanced Directive in documenting wishes for both HCPOA and goals of care. Pt states that her spouse is not in agreement with her on goals of care. SHe shared that she does not trust him as her HCPOA because "he does not agree with my wishes about life support" and aggressive interventions. I encouraged pt to consider naming a HCPOA who will serve to be her voice when she is unable to express her wishes. We discussed importance of naming a person who will not make decisions for her, but that has knowledge of her wishes and will support them. Helped Karen understand that Per [place] [id number], in absence of written documentation of patient wishes, pt's proxy for medical decisions would be her unless she tells us otherwise verbally or in writing. Karen shared that she is unclear who she would choose, but she did verbalize that she would not trust either her or her son to honor her wishes. Plan DNR/DNI, pt requests comfort directed care, but would like to continue current carae until her spouse is here. Phone contact made with spouse, family meeting scheduled for 9am on 07/21/25. Admission and Anticipated Discharge Date Admission Date: July 14, 2025 Subjective Assessed pt at bedside, no visitors. Pt more alert today and shared that pain is well managed. Her nausea has resolved and loose stools less frequent. NAEON. Hypokalemia persists, electrolytes being repleted per attending team. Review of Systems Gastrointestinal: + abdominal pain, + nausea, + vomiting, + diarrhea/loose stools and + fecal incontinence Physical Exam Constitutional: WD/WN, vitals as above + acute distress and + ill appearing Eyes: + anicteric sclerae Respiratory: normal respiratory effort, lungs clear to auscultation Gastrointestinal (Abdomen): Inspection/Auscultation: + hyperactive bowel sounds Percussion/Palpation: + abdomen tender, + guarding and abdomen soft Psychiatric: Orientation: alert and oriented x 3 Affect: euthymic affect Results & Data Vital Signs (Past 12 Hours) Vital Signs Temp Pulse Resp BP Pulse Ox O2 Del Method 07/20/25 08:37 36.6 C 107 H 16 124/76 98 Room Air 07/20/25 03:34 36.9 C 113 H 18 146/86 H 98 Room Air Laboratory Results Abnormal lab results 07/20/25 07/20/25 Range/Units 05:48 14:41 WBC 0.22 L* (4.8-10.8) K/ul RBC 3.76 L (4.20-5.40) M/uL Hgb 11.0 L (12.0-16.0) g/dl Hct 29.4 L (37.0-47.0) % MCV 78.2 L (80.0-100.0) fL MCHC 37.4 H (32.0-36.0) g/dL Plt Count 22 L* (130-400) K/uL Sodium 129 L 129 L (136-145) mmol/L Potassium 2.4 L* 2.1 L* (3.5-5.1) mmol/L Chloride 96 L 97 L (98-107) mmol/L Carbon Dioxide 20 L 19 L (21-32) mmol/L Anion Gap 13 H 13 H (3-11) Creatinine 0.30 L 0.23 L (0.6-1.2) mg/dl BUN/Creatinine Ratio 30.0 H 39.1 H (10-20) Calcium 8.2 L 8.0 L (8.6-10.3) mg/dl Magnesium 1.4 L (1.7-2.4) mg/dl Diagnostic Findings Abdomen/Pelvis CT 07/14/25 17:30 Clinical History: Abdominal pain Technique: Axial computed tomography images were obtained of the abdomen and pelvis after the administration of intravenous contrast. Comparison is made to the prior CT dated 04/08/2025. Findings: The liver is overall of normal size, attenuation, and contour with no sign of cirrhosis or significant fatty infiltration. There is an unchanged 4 mm cyst in the left hepatic lobe. No liver mass lesion is seen. The portal vein is patent. The gallbladder appears unremarkable. No bile duct dilatation is noted. The spleen is of normal size. No focal splenic lesion is evident. The pancreas appears normal with no sign of acute or chronic pancreatitis and no mass lesion noted. The pancreatic duct is of normal caliber. The adrenal glands appear unremarkable. No definite renal or proximal ureteral calculi are seen on this contrast-enhanced study. There is no hydronephrosis or perinephric stranding. No renal mass lesion is identified. There is a small 8 x 3 mm cyst in the mid left kidney. The aorta is of normal caliber. No abdominal adenopathy is seen. There is a small epigastric hernia containing fat The stomach appears normal. There is no sign of small bowel obstruction. There is new wall thickening of the distal jejunum and ileum with adjacent mild mesenteric edema. No free intraperitoneal fluid or air is identified. Anastomotic sutures are again seen of the sigmoid colon. There is a 4.1 x 3.2 cm low attenuation lesion abutting the mid sigmoid colon, previously 3.3 x 2.7 cm. Posterosuperior to this, there is a 3.7 x 2.9 cm low attenuation lesion, previously 3.5 x 2.5 centimeters. Superior to this, there is a 2.6 x 2.3 cm lesion that previously measured 2 x 1.9 cm. No distal ureteral or bladder calculi are seen. No bladder mass lesion is evident. The iliac arteries are of normal caliber. The uterus has been removed The lungs bases appear clear. Lumbar degenerative disc disease is seen. No fracture is identified. No focal osseous lesion is seen Impression: 1. New small bowel wall thickening, consistent with infectious enteritis or inflammatory bowel disease 2. Interval increase in size of 3 low-attenuation lesions in the left pelvis, concerning for worsening metastatic disease 3. Small epigastric hernia containing only fat 4. Small left renal cyst ACT 112: Positive. There are findings on this exam that require communication between the performing entity and the patient following Patient Test Result Information Act ([place] ACT 112) guidelines. Electronically signed by Romel Alonso 07-14-2025 7:16 PM Chest X-Ray 07/14/25 17:30 Chest radiograph, one view History: Sepsis Comparison: None Findings: Single AP view of the chest performed. No focal consolidation or pleural effusion. No pneumothorax. The cardiomediastinal silhouette is within normal limits. Normal pulmonary vascularity. No evidence for lymphadenopathy. No visualized bony or soft tissue abnormality. Impression: Normal chest radiograph Electronically signed by Etienne Fitzgerald 07-14-2025 6:26 PM Medications Administered Current Inpatient Medications Acetaminophen (Acetaminophen 325 Mg Tab) 650 mg PO Q4H PRN PRN Reason: Pain or Fever Stop: 08/13/25 21:51 Last Admin: 07/18/25 19:55 Dose: 650 mg Al Hydrox/Mg Hydrox/Simethicone (Aluminum/Magnesium Susp 30 Ml Udc) 15 ml PO Q4H PRN PRN Reason: Dyspepsia Stop: 08/13/25 21:51 Potassium Chloride 40 meq/ (Sodium Chloride) 1,020 mls @ 80 mls/hr IV .[id number] [facility] Stop: 07/21/25 15:29 Last Infusion: 07/20/25 14:35 Dose: Infused Metronidazole (Flagyl) 500 mg in 100 mls @ 100 mls/hr IV Q8H [facility]; Protocol Stop: 07/30/25 10:59 Last Admin: 07/20/25 14:39 Dose: 100 mls/hr Magnesium Sulfate/Dextrose (Magnesium Sulfate / D5w) 1 gm in 100 mls @ 50 mls/hr IV Q2H [facility] Stop: 07/20/25 16:44 Melatonin (Melatonin 3 Mg Tab) 3 mg PO HS PRN PRN Reason: Sleep Stop: 08/13/25 21:51 Morphine Sulfate (Morphine Sulfate 4 Mg/Ml 1 Ml Carp\\Vial) 4 mg IV Q2H PRN PRN Reason: Severe Pain (Scale 7, 8, 9,10) Stop: 08/01/25 16:01 Last Admin: 07/20/25 07:13 Dose: 4 mg Ondansetron HCl (Ondansetron 4 Mg Od Tab) 4 mg SL Q8H PRN PRN Reason: NAUSEA/VOMITING Stop: 08/13/25 21:53 Ondansetron HCl (Ondansetron Inj 2 Mg/Ml 2 Ml Vial) 4 mg IV Q6H PRN PRN Reason: Nausea Stop: 08/13/25 21:51 Last Admin: 07/18/25 10:13 Dose: 4 mg Oxycodone HCl (Oxycodone Hcl Ir 5 Mg Tab (Immediate Release)) 10 mg PO Q4H PRN PRN Reason: Pain Stop: 07/29/25 09:20 Last Admin: 07/20/25 14:55 Dose: 10 mg Prochlorperazine (Prochlorperazine Maleate 10 Mg Tab) 10 mg PO Q6H PRN PRN Reason: NAUSEA/VOMITING Stop: 08/13/25 21:51 Vancomycin HCl (Vancomycin Hcl 125 Mg Cap) 125 mg PO Q6 [facility] Stop: 07/30/25 11:59 Last Admin: 07/20/25 14:45 Dose: 125 mg PG Care Time/CCT Total # of Minutes Spent Total Time Spent with Patient: Total time spent is greater than 50% in coordination of care (as documented) at patient's floor/unit and/or counseling patient: Advanced Care Planning 67334 Advanced Care Planning 30 Min [place] [address] SUB INP/OBS CARE 2/35MIN Patient Type Established History Expanded Problem Focused Exam Expanded Problem Focused Medical Decision Making Moderate Complexity Diagnoses Cancer related pain G89.3 Diarrhea R19.7 Palliative care by specialist Z51.5 Counseling regarding goals of care Z71.89 Advanced directives, counseling/discussion Z71.89 Additional Codes Advanced Care Planning - 26734 Advanced Care Planning 30 Min: 64250 Advanced Care Planning 30 Min ([id number])
[2025-07-20] MEDS: POTASSIUM CHLORIDE / WTR 10 MEQ/100 ML PLCT IV SCH ×2 (14:37→22:14)
[2025-07-20] MEDS: metroNIDAZOLE 500 MG/100 ML BAG IV SCH (14:39)
[2025-07-20] MEDS: VANCOMYCIN HCL 125 MG CAP PO SCH (14:45)
[2025-07-20 15:24] LABS: Anion Gap 13.0 (3-11); Blood Urea Nitrogen 9.0 mg/dl (6-23); Calcium 8.0 mg/dl (8.6-10.3); Carbon Dioxide 19.0 mmol/L (21-32); Chloride 97.0 mmol/L (98-107); Creatinine Clr Calc Pharmacy 202.3 ml/min; Glucose 81.0 mg/dl (70-99(Fasting)); Potassium 2.1 mmol/L (3.5-5.1); Sodium 129.0 mmol/L (136-145)
[2025-07-20] MEDS: MAGNESIUM SULFATE / D5W 1 GM/100 ML BAG IV SCH (16:38)
--- NOTE | 2025-07-20 16:55 | Communication Note ---
Date of Service: July 20, 2025 her potassium remained low at 2.1; increased 40 meq kcl to 110/hours providing IV supplement
[2025-07-20] MEDS ORDERED: POTASSIUM CHLORIDE / WTR 20 MEQ/100 ML PLCT IV SCH (17:00)
[2025-07-20] MEDS: POTASSIUM CHLORIDE 40 MEQ in SODIUM CHLORIDE 0.9% 1,000 ML IV SCH ×2 (18:13→20:23)
[2025-07-20] MEDS: POTASSIUM CHLORIDE 20 MEQ/15 ML UDC PO SCH (20:18)
[2025-07-20 21:52] LABS: Anion Gap 12.0 (3-11); Blood Urea Nitrogen 8.0 mg/dl (6-23); Calcium 7.9 mg/dl (8.6-10.3); Carbon Dioxide 21.0 mmol/L (21-32); Chloride 94.0 mmol/L (98-107); Creatinine Clr Calc Pharmacy 166.2 ml/min; Glucose 94.0 mg/dl (70-99(Fasting)); Potassium 2.4 mmol/L (3.5-5.1); Sodium 127.0 mmol/L (136-145)
--- NOTE | 2025-07-20 23:26 | Ultrasound Report ---
Exam(s): US VENOUS BILATERAL LOWER EXTREMITIES EXAM: US Duplex Bilateral Lower Extremities Veins CLINICAL HISTORY: Reason for exam: tachycardia, r/o DVT, PE. TECHNIQUE: Real-time duplex ultrasound scan of the bilateral lower extremity veins integrating B-mode two-dimensional vascular structure, Doppler spectral analysis, color flow Doppler imaging and compression. COMPARISON: No relevant prior studies available. FINDINGS: Right deep veins: No DVT in the right common femoral, femoral, proximal deep femoral or popliteal veins. The veins demonstrate normal color flow, are normally compressible, with normal phasic flow and/or augmentation response. Right superficial veins: No thrombus in the visualized right great saphenous vein. Left deep veins: No DVT in the left common femoral, femoral, proximal deep femoral or popliteal veins. The veins demonstrate normal color flow, are normally compressible, with normal phasic flow and/or augmentation response. Left superficial veins: No thrombus in the visualized left great saphenous vein. Soft tissues: No acute findings. No popliteal cyst. IMPRESSION: No ultrasound evidence of deep venous thrombosis in the lower extremities. . Electronically signed by: Ranjan Avila MD 07/20/25 23:25 PM
[2025-07-21 08:15] LABS: Anion Gap 12.0 (3-11); Blood Urea Nitrogen 18.0 mg/dl (6-23); Calcium 8.3 mg/dl (8.6-10.3); Carbon Dioxide 22.0 mmol/L (21-32); Chloride 97.0 mmol/L (98-107); Creatinine Clr Calc Pharmacy 58.0 ml/min; Glucose 92.0 mg/dl (70-99(Fasting)); Potassium 3.1 mmol/L (3.5-5.1); Sodium 131.0 mmol/L (136-145)
[2025-07-21 08:32] LABS: Hematocrit (blood only) 28.4 % (37.0-47.0); Hemoglobin 10.7 g/dl (12.0-16.0); Mean Corpuscular Hemoglobin 28.8 pg (25.0-34.0); Mean Corpuscular Volume 76.5 fL (80.0-100.0); Platelet Count 16 K/uL (130-400); RDW Standard Deviation 36.3 fL (36.4-46.3); Red Blood Count 3.71 M/uL (4.20-5.40); White Blood Count 0.36 K/ul (4.8-10.8)
[2025-07-21 08:43] LABS: Magnesium 1.9 mg/dl (1.7-2.4)
[2025-07-21] MEDS: ONDANSETRON INJ 2 MG/ML 2 ML VIAL IV STA (09:17)
[2025-07-21] MEDS ORDERED: LORazepam Inj 0.5 MG in SYRINGE 0.25 ML IV PRN (09:22)
[2025-07-21] MEDS ORDERED: MoRPHine SULFATE 10 MG/0.5 ML UDP PO PRN (09:22)
[2025-07-21] MEDS ORDERED: ONDANSETRON INJ 2 MG/ML 2 ML VIAL IV PRN (09:22)
[2025-07-21] MEDS: MoRPHine SULFATE 2 MG/ML CARP IV PRN ×2 (09:54→16:28)
--- NOTE | 2025-07-21 11:02 | Palliative Care Progress Note ---
Date of Service July 21, 2025 Assessment & Plan (1) Cancer related pain: (2) Diarrhea: Plan: Pt states that she has had chronic diarrhea 2/2 colon cancer treatments but this has increased from 4-5/day to hourly incontinence of liquid stool. She is being treated for CDiff per ID recs. (3) Palliative care by specialist: Plan: Met with pt at bedside, Spouse, Aidan, present. Palliative care will continue to follow for ongoing EOL pt care and family support. (4) Counseling regarding goals of care: Plan: Today, 07/21: Met with pt and her spouse, Aidan, at bedside. Pt shared pain/nausea better managed after zofran and morphine administered. Discussed patient's acute and chronic medical conditions, general prognosis, treatment options, and goals of care. Pt reinforced her desire for a transition to a comfort based approach. She stated "I am dying" to her . Reinforced that prognosis is poor and life expectancy on hospice is likely days to weeks. Aidan shared that he agrees with transition to comfort directed care and requests "keep her out of pain as best as you can". Both in agreement to LITURGICAL MUSIC DIRECTOR, advised that referral would be placed for GIP hospice evaluation. Pt with persistent incontinence of liquid stool, nausea with emesis, and intractable pain. Advised on criteria for GIP hospice and that decision would be made by hospice team. Discussed hospice benefit: an interdisciplinary program offered by nurses, nurses aides, social workers, chaplains and a medical numerical control operator for patients with a terminal condition and a life expectancy of less than 6 months. This is covered by Medicare at 100%/no out of pocket expense to patient and all meds/supplies needed by patient for the reason they are on hospice are paid for/covered by hospice. The goal is assure quality of life of the patient in their home setting (home, half-way, inpatient hospice setting) by providing symptoms management, psychosocial and spiritual support. However, they cannot offer 24 hours care and if the family is unable to provide that care, they will have to consider personal care with out of pocket cost vs. half-way placement. We discussed the goals of hospice as a patient service and the goals of care; we discussed EOL trajectories and transitions homar the emotional impact of realizing mortality as a concrete reality from prior abstract considerations. Pt was reassured that no matter where they are along this trajectory, they are not alone - their medical team will remain by their side through their journey. Discussed the pros/cons of accepting help when especially weakened and distressed by pain-which would also help provide relief/decrease caregiver burden/strain. 07/20: Met with pt to discuss her values and GOC for 30 minutes at bedside. Pt no longer in pain crisis and appears rested, lying in bed in NAD. She shared that her pain is well controlled and she actually slept a bit better last night. Pt reinforced that she is not wanting any further cancer directed treatment nor any life prolonging treatments. She shared concern that Aidan, her , may argue with this. She shared that he battles anxiety and he is not accepting of how sick she is. She shared that she had asked Dr Zhao to call him and help him understand that she is only getting sicker, but she is not sure if he was able to reach Aidan. She requested that I call Aidan and help him understand and accept her choices. Given pt's request for comfort directed care, discussed code status and helped her understand that CPR is only done after a person has and involves uncomfortable and invasive procedures that, if successful. have high risk of multiple complications including but not limited to rib fractures, pneumo/hemothorax, ELENA, ventilator dependence, anoxic brain injury, and half-way/permanent cognitive and functional deficits. Karen shared that she never wishes to be on a ventilator, and requests DNR/DNI. We discussed transition to LITURGICAL MUSIC DIRECTOR and likely prognosis of days to weeks if we stop repleting her electrolytes. We discussed that she may not be stable enough to leave the hospital and discussed criteria for GIP hospice. Pt responded "that would be good" and expressed that she does not wish to prolong her suffering, but is hopeful that Aidan can be brought to accept that she is dying prior to changing to LITURGICAL MUSIC DIRECTOR. 07/19: Pt stated that she has had no quality of life due to symptom burden and she is not wanting any further cancer directed treatments specifically due to the severe intractable pain. We discussed how she would feel about ongoing cancer treatment if we could offer better symptom management. Pt was unsure, but stated clearly that she does "not want to live like this anymore". She shared that she has been struggling with severe pain and diarrhea which prevent her from living her life. Pt was in pain crisis during my assessment, with 9::10 pain. We discussed revisiting GOC after her pain is more well managed. (5) Advanced directives, counseling/discussion: Plan: 07/20: Reinforced prior discussion, pt shared that she does not have any other person she would want to name as HCPOA. She shared concern that her spouse does not agree with her wishes for no more aggressive measures. We discussed bringing him into discussion to allow him to hear the same information about her health and ask questions to help him see her perspective. SHe shared that he will not be visiting today but encouraged that I set time for meeting to discuss AD/GOC. 07/19: Discussed importance of Advanced Directive in documenting wishes for both HCPOA and goals of care. Pt states that her spouse is not in agreement with her on goals of care. SHe shared that she does not trust him as her HCPOA because "he does not agree with my wishes about life support" and aggressive interventions. I encouraged pt to consider naming a HCPOA who will serve to be her voice when she is unable to express her wishes. We discussed importance of naming a person who will not make decisions for her, but that has knowledge of her wishes and will support them. Helped Karen understand that Per [place] [id number], in absence of written documentation of patient wishes, pt's proxy for medical decisions would be her unless she tells us otherwise verbally or in writing. Karen shared that she is unclear who she would choose, but she did verbalize that she would not trust either her or her son to honor her wishes. (6) Comfort measures only status: Plan: Patient and her spouse request transition to comfort based approach to care. (7) Need for comfort care: Plan: Comfort plan of care parameters: 1. Patient/Family want hospice added to their care. 2. NO rehab/PT/OT 3. Strictly End of Life care only 4. NO escalation of care: do not increase oxygen, escalate therapies, etc. The focus is on comfort through end of life, assure this is accomplished with aggressive symptom management (i.e. relief of dyspnea, pain, etc.) 5. NO return to hospital 6. NO labs, imaging, surgery 7. Oral intake as desired for comfort and pleasure: NO dietary restriction, Allow permissive aspiration, do not withhold food or drink for concern of aspiration and allow PO for pleasure and comfort. 8. If difficulty urinating/commode/bedpan, ok to place Reddy catheter for comfort/hygiene/skin protection AND/OR Continue Reddy catheter for comfort/hygiene/skin protection 9. NO: calorie counts, artificial nutrition, feeding tubes or IV fluids EOL Symptom manamgement: Pain/dyspnea/tachypnea morphine 2mg IVP PRN [id number] Consider titratable morphine drip if pt requires >3 PRN doses in under two consecutive hours. Nausea/vomitting zofran 4mg IVP q4h PRN Agitation ativan 0.5mg IVP q4h PRN Hyperactive delirium haldol 5mg IVP q6h PRN Secretions - if repositioning not effective robinul 0.4mg IV q4h PRN atropine SL 3 drops Q1h PRN Nursing care: Discontinue all medications not directed towards comfort. Detether pt from IV tubing, monitor cables, and check vitals once per shift. Please continue HFNC and titrate down as able for patient comfort. Use medications above PRN for dyspnea/tachypnea and do not increase oxygen once titrated down. Assess q1h for pain/dyspnea and treat accordingly. Plan LITURGICAL MUSIC DIRECTOR, intractable pain and frequent incontinence of liquid stool, pending evaluation for [facility] Admission and Anticipated Discharge Date Admission Date: July 14, 2025 Subjective Assessed pt at bedside, she was awake and alert and in acute pain. She also c/o nausea. Pt medicated with 8mg zofran and 4mg morphine IV, with some relief. Her was present at bedside. NAEON. [place]. Review of Systems Gastrointestinal: + abdominal pain, + nausea, + vomiting, + diarrhea/loose stools and + fecal incontinence Physical Exam Constitutional: WD/WN, vitals as above + acute distress and + ill appearing Eyes: + anicteric sclerae Respiratory: normal respiratory effort, lungs clear to auscultation Gastrointestinal (Abdomen): Inspection/Auscultation: + hyperactive bowel sounds Percussion/Palpation: + abdomen tender, + guarding and abdomen soft Psychiatric: Orientation: alert and oriented x 3 Affect: euthymic affect Results & Data Vital Signs (Past 12 Hours) Vital Signs Temp Pulse Pulse Resp BP BP Pulse Ox 07/21/25 09:00 07/21/25 08:07 36.4 C L 133 H 18 93/61 L 95 07/21/25 03:18 36.7 C 134 H 20 91/63 L 96 07/20/25 23:26 37.9 C H 121 H 16 93/59 L 96 07/20/25 23:06 126 H O2 Del Method 07/21/25 09:00 Room Air 07/21/25 08:07 Room Air 07/21/25 03:18 Room Air 07/20/25 23:26 Room Air 07/20/25 23:06 Laboratory Results Abnormal lab results 07/20/25 07/20/25 07/21/25 Range/Units 14:41 20:45 07:35 WBC 0.36 L* (4.8-10.8) K/ul RBC 3.71 L (4.20-5.40) M/uL Hgb 10.7 L (12.0-16.0) g/dl Hct 28.4 L (37.0-47.0) % MCV 76.5 L (80.0-100.0) fL MCHC 37.7 H (32.0-36.0) g/dL RDW Std Deviation 36.3 L (36.4-46.3) fL Plt Count 16 L* (130-400) K/uL Sodium 129 L 127 L 131 L (136-145) mmol/L Potassium 2.1 L* 2.4 L* 3.1 L D (3.5-5.1) mmol/L Chloride 97 L 94 L 97 L (98-107) mmol/L Carbon Dioxide 19 L (21-32) mmol/L Anion Gap 13 H 12 H 12 H (3-11) Creatinine 0.23 L 0.28 L (0.6-1.2) mg/dl BUN/Creatinine Ratio 39.1 H 28.6 H 21.4 H (10-20) Calcium 8.0 L 7.9 L 8.3 L (8.6-10.3) mg/dl Diagnostic Findings Abdomen/Pelvis CT 07/14/25 17:30 Clinical History: Abdominal pain Technique: Axial computed tomography images were obtained of the abdomen and pelvis after the administration of intravenous contrast. Comparison is made to the prior CT dated 04/08/2025. Findings: The liver is overall of normal size, attenuation, and contour with no sign of cirrhosis or significant fatty infiltration. There is an unchanged 4 mm cyst in the left hepatic lobe. No liver mass lesion is seen. The portal vein is patent. The gallbladder appears unremarkable. No bile duct dilatation is noted. The spleen is of normal size. No focal splenic lesion is evident. The pancreas appears normal with no sign of acute or chronic pancreatitis and no mass lesion noted. The pancreatic duct is of normal caliber. The adrenal glands appear unremarkable. No definite renal or proximal ureteral calculi are seen on this contrast-enhanced study. There is no hydronephrosis or perinephric stranding. No renal mass lesion is identified. There is a small 8 x 3 mm cyst in the mid left kidney. The aorta is of normal caliber. No abdominal adenopathy is seen. There is a small epigastric hernia containing fat The stomach appears normal. There is no sign of small bowel obstruction. There is new wall thickening of the distal jejunum and ileum with adjacent mild mesenteric edema. No free intraperitoneal fluid or air is identified. Anastomotic sutures are again seen of the sigmoid colon. There is a 4.1 x 3.2 cm low attenuation lesion abutting the mid sigmoid colon, previously 3.3 x 2.7 cm. Posterosuperior to this, there is a 3.7 x 2.9 cm low attenuation lesion, previously 3.5 x 2.5 centimeters. Superior to this, there is a 2.6 x 2.3 cm lesion that previously measured 2 x 1.9 cm. No distal ureteral or bladder calculi are seen. No bladder mass lesion is evident. The iliac arteries are of normal caliber. The uterus has been removed The lungs bases appear clear. Lumbar degenerative disc disease is seen. No fracture is identified. No focal osseous lesion is seen Impression: 1. New small bowel wall thickening, consistent with infectious enteritis or inflammatory bowel disease 2. Interval increase in size of 3 low-attenuation lesions in the left pelvis, concerning for worsening metastatic disease 3. Small epigastric hernia containing only fat 4. Small left renal cyst ACT 112: Positive. There are findings on this exam that require communication between the performing entity and the patient following Patient Test Result Information Act ([place] ACT 112) guidelines. Electronically signed by Romel Alonso 07-14-2025 7:16 PM Chest X-Ray 07/14/25 17:30 Chest radiograph, one view History: Sepsis Comparison: None Findings: Single AP view of the chest performed. No focal consolidation or pleural effusion. No pneumothorax. The cardiomediastinal silhouette is within normal limits. Normal pulmonary vascularity. No evidence for lymphadenopathy. No visualized bony or soft tissue abnormality. Impression: Normal chest radiograph Electronically signed by Etienne Fitzgerald 07-14-2025 6:26 PM Venous Doppler Study 07/20/25 17:28 Exam(s): US VENOUS BILATERAL LOWER EXTREMITIES EXAM: US Duplex Bilateral Lower Extremities Veins CLINICAL HISTORY: Reason for exam: tachycardia, r/o DVT, PE. TECHNIQUE: Real-time duplex ultrasound scan of the bilateral lower extremity veins integrating B-mode two-dimensional vascular structure, Doppler spectral analysis, color flow Doppler imaging and compression. COMPARISON: No relevant prior studies available. FINDINGS: Right deep veins: No DVT in the right common femoral, femoral, proximal deep femoral or popliteal veins. The veins demonstrate normal color flow, are normally compressible, with normal phasic flow and/or augmentation response. Right superficial veins: No thrombus in the visualized right great saphenous vein. Left deep veins: No DVT in the left common femoral, femoral, proximal deep femoral or popliteal veins. The veins demonstrate normal color flow, are normally compressible, with normal phasic flow and/or augmentation response. Left superficial veins: No thrombus in the visualized left great saphenous vein. Soft tissues: No acute findings. No popliteal cyst. IMPRESSION: No ultrasound evidence of deep venous thrombosis in the lower extremities. . Electronically signed by: Ranjan Avila MD 07/20/25 23:25 PM Medications Administered Current Inpatient Medications Acetaminophen (Acetaminophen 325 Mg Tab) 650 mg PO Q4H PRN PRN Reason: Pain 1-3 or Fever Stop: 08/13/25 21:51 Last Admin: 07/18/25 19:55 Dose: 650 mg Al Hydrox/Mg Hydrox/Simethicone (Aluminum/Magnesium Susp 30 Ml Udc) 15 ml PO Q4H PRN PRN Reason: Dyspepsia Stop: 08/13/25 21:51 Lorazepam 0.5 mg/ Syringe 0.5 mls @ 2 mls/min IV Q4H PRN PRN Reason: Anxiety/Agitation Stop: 08/20/25 09:21 Melatonin (Melatonin 3 Mg Tab) 3 mg PO HS PRN PRN Reason: Sleep Stop: 08/13/25 21:51 Morphine Sulfate (Morphine Sulfate 4 Mg/Ml 1 Ml Carp\\Vial) 4 mg IV Q2H PRN PRN Reason: Severe Pain (Scale 7, 8, 9,10) Stop: 08/01/25 16:01 Last Admin: 07/21/25 09:20 Dose: 4 mg Morphine Sulfate (Morphine Sulfate 10 Mg/0.5 Ml Udp) 5 mg PO Q2H PRN PRN Reason: Pain or Respiratory Distress Stop: 08/04/25 09:21 Morphine Sulfate (Morphine Sulfate 2 Mg/Ml Carp) 2 mg IV Q15M PRN PRN Reason: Pain 4-6 or Resp Distress Stop: 08/04/25 09:21 Last Admin: 07/21/25 09:54 Dose: 2 mg Ondansetron HCl (Ondansetron 4 Mg Od Tab) 4 mg SL Q8H PRN PRN Reason: NAUSEA/VOMITING Stop: 08/13/25 21:53 Ondansetron HCl (Ondansetron Inj 2 Mg/Ml 2 Ml Vial) 4 mg IV Q4H PRN PRN Reason: Nausea &/or Vomiting Stop: 08/20/25 09:21 Prochlorperazine (Prochlorperazine Maleate 10 Mg Tab) 10 mg PO Q6H PRN PRN Reason: NAUSEA/VOMITING Stop: 08/13/25 21:51 PG Care Time/CCT Total # of Minutes Spent Total Time Spent with Patient: Total time spent is greater than 50% in coordination of care (as documented) at patient's floor/unit and/or counseling patient: Advanced Care Planning 73278 Advanced Care Planning 30 Min [place] [address] SUB INP/OBS CARE 3/50MIN Patient Type Established History Expanded Problem Focused Exam Expanded Problem Focused Medical Decision Making Moderate Complexity Diagnoses Cancer related pain G89.3 Diarrhea R19.7 Palliative care by specialist Z51.5 Counseling regarding goals of care Z71.89 Advanced directives, counseling/discussion Z71.89 Comfort measures only status Z51.5 Need for comfort care Additional Codes Advanced Care Planning - 73742 Advanced Care Planning 30 Min: 97295 Advanced Care Planning 30 Min ([id number])
--- NOTE | 2025-07-21 12:36 | Hospitalist Progress Note ---
Date of Service July 21, 2025 Assessment & Plan (1) Nausea, vomiting and diarrhea: Plan: -c.diff B + with symptoms switched to NETWORK DESIGN ARCHITECT on 07/21/2025 antibiotics dc (2) UTI (urinary tract infection): Plan: -on cefepime off antibiotics (3) Neutropenia: Plan: -colon CA no longer interested in chemotherapy and requested to switch to comfort measure update in person on 07/21 (4) Hyponatremia: Plan: -on NS IVF -f/u BMP (5) Hypomagnesemia: Plan: -repleted. NETWORK DESIGN ARCHITECT, no additional blood work (6) Hypokalemia: Plan: -K+ 2.0 -repeated -Nephrology consult appreciated -IVF change to at KCl (7) Hypocalcemia: Plan: -calcium gluconate given (8) Elevated troponin: Plan: EKG sinus tachycardia @ 117 bpm, no ischemic changes - Likely 2/2 demand (9) Colon cancer: Plan: - 5 years -on immunotherapy -pt not wanting to move forward with treatment however not willing to give up -palliative care consulted 07/18 on 07/21/2025, switch to NETWORK DESIGN ARCHITECT comfort measure transfer to med/surgery floor with private bed Plan 65-year-old female PMHx stage IV colon cancer on immunotherapy presenting from cancer [facility] for N/V/D as well as electrolyte abnormalities as identified on outpatient labs. Her evaluation does reveal that she is leukopenic and neutropenic at 0.32 and <0.5 respectively. Electrolyte abnormalities include decreased sodium, potassium, calcium and magnesium. Slightly elevated bilirubin with decreased AST, elevated alkaline phosphatase. Procalcitonin minimally elevated with normal lactate and presence of UTI. CTAP revealing findings consistent with infectious enteritis or IBS. Admission for neutropenia in setting of UTI, enteritis, and electrolyte abnormalities. she was noted to has C. difficile infection. she's has low potassium of 2.5 and low magnesium of 1.4 on 07/21/2025, palliative care met with , requested for transition to NETWORK DESIGN ARCHITECT. stop IV fluid, stop antibiotics goal is for patient to in dignifier manner. Admission and Anticipated Discharge Date Admission Date: July 14, 2025 Subjective palliative care spoke with after some discussion, reflected on patient wish to no wanting chemotherapy and agreeable for transition to hospice care stated patient has 2 brothers but deferred hospitalist updating her brothers she will be on comfort med in addition, hold antibiotics, hold fluid and repletion goal is to has patient in dignify manner updated in person today Physical Exam Physical Exam: VITALS: Reviewed. WEIGHT/BMI reviewed. Neuro: sedated; non-responsive general: ill appearing lung; normal breathing, on room air abdomen: soft to touch psych: calm; comfortable Results & Data Results & Data Vital Signs (Past 12 Hours) Vital Signs Temp Pulse Resp BP BP Pulse Ox O2 Del Method 07/21/25 09:00 Room Air 07/21/25 08:07 36.4 C L 133 H 18 93/61 L 95 Room Air 07/21/25 03:18 36.7 C 134 H 20 91/63 L 96 Room Air PG Care Time/CCT Total # of Minutes Spent Total Time Spent with Patient: Total time spent is greater than 50% in coordination of care (as documented) at patient's floor/unit and/or counseling patient: Coding Level of Care Code 60659 SUB INP/OBS CARE 1/25MIN Diagnoses Nausea, vomiting and diarrhea R11.2; R19.7 UTI (urinary tract infection) N39.0 Neutropenia D70.9 Hyponatremia E87.1 Hypomagnesemia E83.42 Hypokalemia E87.6 Hypocalcemia E83.51 Elevated troponin R79.89 Colon cancer C18.9 Time Spent (min) 25
--- NOTE | 2025-07-21 20:39 | Death Pronouncement Note ---
Date of Service July 21, 2025 Pronouncement Note Admission Date Admission Date: July 14, 2025 Contributing Factors (1) Nausea, vomiting and diarrhea: (2) UTI (urinary tract infection): (3) Neutropenia: (4) Hyponatremia: (5) Hypomagnesemia: (6) Hypokalemia: (7) Hypocalcemia: (8) Elevated troponin: (9) Colon cancer: (10) Comfort measures only status: (11) Need for comfort care: Hospital Course Hospital Course: I was called to pronounce the of Phoebe Nicole : 06/07/1860 by nursing on 07/21/2025 Upon entering the room, the patient was found to be in a terminal state. Patient was unresponsive to verbal and tactile stimuli. Patient unresponsive to corneal and pupillary reflexes. On cardiopulmonary exam, no carotid or radial pulses found and pt without spontaneous heart tones or respirations. Time of was pronounced by me on 07/21/2025 at 20:28 Attending physician was notified. Next of kin was notified by nursing Additional Data Attending physician: Tejas Nicole DO Resident Activity Tracking Resident Involvement: Resident Care Provided Care Provided: Adult Hospital Medicine
--- NOTE | 2025-07-22 14:16 | Discharge Summary ---
Discharge Summary Date of Service July 22, 2025 Principal Dx & Hospital Course #1 = Principal Diagnosis (1) Nausea, vomiting and diarrhea: Hospital course Ryan Nicole is a 65 yo woman with PMH of colon cancer stage on immunotherapy, on day of admission, she was having nausea and vomiting she's was found to has neutropenia, leukopenia, also has hypokalemmia, hypomagnesemia she was found to has UTI, on cefepime but also noted to has diarrhea with C. difficile infection, seen by ID and recommended empiric treatment with C. difficile infection she's continue to has hypokalemia, hypomagnesemia requiring repletion. in addition, she was in poor health and no longer want to pursue colon cancer treatment and requesting switchig over the hospice care she's has , she has no contact with her son for many year on 07/21/2025, , patient met with palliative care at bedside, they requested for transition so she can in dignifer manner patient and requested for placement to inpatient hospice she was provided with comfort med and pass away peaceful on 07/21/2025 on 20:28 her certificate was completed on 07/22/2025 (2) UTI (urinary tract infection): -on cefepime off antibiotics (3) Neutropenia: -colon CA no longer interested in chemotherapy and requested to switch to comfort measure update in person on 07/21 (4) Hyponatremia: -on NS IVF -f/u BMP (5) Hypomagnesemia: -repleted. APPEALS REPRESENTATIVE, no additional blood work (6) Hypokalemia: -K+ 2.0 -repeated -Nephrology consult appreciated -IVF change to at KCl (7) Hypocalcemia: -calcium gluconate given (8) Elevated troponin: EKG sinus tachycardia @ 117 bpm, no ischemic changes - Likely 2/2 demand (9) Colon cancer: - 5 years -on immunotherapy -pt not wanting to move forward with treatment however not willing to give up -palliative care consulted 07/18 on 07/21/2025, switch to APPEALS REPRESENTATIVE comfort measure transfer to med/surgery floor with private bed Plan 65-year-old female PMHx stage IV colon cancer on immunotherapy presenting from [facility] for N/V/D as well as electrolyte abnormalities as identified on outpatient labs. Her evaluation does reveal that she is leukopenic and neutropenic at 0.32 and <0.5 respectively. Electrolyte abnormalities include decreased sodium, potassium, calcium and magnesium. Slightly elevated bilirubin with decreased AST, elevated alkaline phosphatase. Procalcitonin minimally elevated with normal lactate and presence of UTI. CTAP revealing findings consistent with infectious enteritis or IBS. Admission for neutropenia in setting of UTI, enteritis, and electrolyte abnormalities. she was noted to has C. difficile infection. she's has low potassium of 2.5 and low magnesium of 1.4 on 07/21/2025, palliative care met with , requested for transition to APPEALS REPRESENTATIVE. stop IV fluid, stop antibiotics goal is for patient to in dignifier manner. Admission HPI Per Admitting Provider 65-year-old female PMHx stage IV colon cancer on immunotherapy presenting from [facility] for N/V/D as well as electrolyte abnormalities as identified on outpatient labs. 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 3 days BUNDLE SORTER this worsened and she has been unable to keep any oral intake down since. She does admit to being on Lonsurf and was not taking this medication correctly, stating that she misunderstood the instructions and believes that this is the reason that she has felt sick. She states she has loose stool approximately 2+ times a day, excessive gas, and vomits multiple times of the day, mainly clear liquid. She does continue to land ve dry heaves but no nausea. States that her abdomen is not painful but she feels rumbling so she is to have a bowel movement. She denies fevers or chills. She has had a generalized headache across her forehead but no vision changes or neuro-deficits. No dysuria or foul odor to urine, but states that she is having lower abdomen pressure and feeling like she has to urinate all the time. She was seen by the [facility] the day of arrival who encouraged her to come to ED after the labs showed that she was leukopenic and neutropenic, with presence of UTI. Patient denies chest pain, SOB, palpitations, constipation, numbness/tingling, fever/chills, URI symptoms, additional LUTS, syncope, or falls. ED evaluation reveals CBC with leukopenia 0.32, H&H 13.6/39.0, platelets 106, neutrophils <0.5; CMP sodium 130, potassium 2.9, chloride 97, creatinine 0.48, ratio 29.2, glucose 128; calcium 8.2; magnesium 1.6; lactate 1.1; bilirubin 1.6, AST 9, alkaline phosphatase 114; troponin 16.7; procalcitonin 0.88; UA positive for infection; BioFire negative; CXR WNL; CTAP new small bowel wall thickening consistent with infectious enteritis or IBS, interval increase in size 3 low-attenuation lesion of L pelvis concerning for worsening metastatic disease, small gastric hernia containing only fat, small L renal cyst; EKG sinus tachycardia @ 117 bpm.; Provided with 1L NSS, KCl 10 mEq IV, mag sulfate 2 g IV, hydromorphone 1 mg IV, famotidine 20 mg IV, cefepime 2 g IV, calcium gluconate 1 mg IV, and Maalox 30 mL p.o. in ED. Please see Dr. Tafoya's attestation for adjustments/additions to treatment plan. Discharge Exam General: decreased heent: pupil non-reactive heart: no heart sound lung: no breath sound neuro: non-responsive to stimuli abdomen: soft to touch Discharge Plan Discharge Items Patient Disposition: Other Date/Time: 07/21/25 20:28 Hospital Stay Data Consultations 07/14/25 19:38 ED Decision to Admit Stat 07/15/25 07:38 Consult Infectious Diseases Routine 07/17/25 07:59 Consult Oncology Routine 07/18/25 10:28 Consult Nephrology Routine 07/18/25 12:02 Consult Palliative Care Routine Diagnostic Imagining Performed 07/14/25 17:30 CT abd pelvis IV con only Stat 07/20/25 17:28 US venous duplex leg [US venous doppler LE BI] Urgent Total Time Total Time Spent Total Time Spent (In Minutes): 35 Coding Level of Care Code 43710 INP/OBS DISCH >30 MIN Diagnoses Nausea, vomiting and diarrhea R11.2; R19.7 UTI (urinary tract infection) N39.0 Neutropenia D70.9 Hyponatremia E87.1 Hypomagnesemia E83.42 Hypokalemia E87.6 Hypocalcemia E83.51 Elevated troponin R79.89 Colon cancer C18.9 Time Spent (min) 35
--- NOTE | 2025-07-23 10:15 | Coding Query ---
SEPSIS To promote full compliance with coding requirements relating to patient care, physician participation is requested in all cases of conference manager uncertainty. Please assist us with the question(s) below: In responding to this query, please exercise your independent professional judgement. The fact that a question is asked does not imply that any particular answer is desired or expected. We appreciate your clarification on this issue. Pt admitted with UTI & C Diff enteritis.Mild elevation in procalcitonin. Pt with stage IV cancer . H/P only mentioned Sepsis; note documented Septic shock. Please check below if applicable the diagnosis that was treated during this Inpatient stay. Thank you. Biju Hairston CORE WINDING OPERATOR [facility] ____ ( )Bacteremia (Nonspecific laboratory finding of bacteria in the blood) Specify Organism ( ) Present on Admission ( x) Not present on admission ( ) Unable to clinically determine ( ) Septicemia (Systemic disease associated with the presence of pathogenic microorganisms in the blood): Specify Organism ( x) Present on Admission ( ) Not present on admission ( ) Unable to clinically determine ( ) Sepsis Specify Organism Specify Associated Condition/Diagnosis ( x) Present on Admission ( ) Not present on admission ( ) Unable to clinically determine ( ) Severe Sepsis (Sepsis associated with acute organ dysfunction) Specify Organism Specify Associated Condition/Diagnosis ( x) Present on Admission ( ) Not present on admission ( ) Unable to clinically determine ( ) Septic Shock (Severe sepsis with acute circulatory failure, unexplained by other causes) ( x) Present on Admission ( ) Not present on admission ( ) Unable to clinically determine ( ) Other, patient has: MTDD
== END 2025-07-22 00:39 | disposition expired | DRG 871 ==
LOC: ED 16:46 → SUATTDRO 20:17 → 2W 20:17 → 2S 07-20 18:48 → 3E 07-21 17:17